=== PATIENT | female | born 1955 | race African-American/Black ===

== ENCOUNTER 2020-01-27 15:22 | Inpatient (IN) ==
[2020-01-27] MEDS ORDERED: ALBUTEROL NEB SOLN 5 MG/ML 20 ML/BOTTLE CONT NEB STA (15:36)
[2020-01-27] MEDS ORDERED: methylPREDNISolone SOD SUC 125 MG/2 ML VIAL IV STA (15:51)
[2020-01-27] MEDS ORDERED: LACTULOSE 20 GM/30 ML UDCUP PO PRN (16:02)
[2020-01-27] MEDS ORDERED: ONDANSETRON 4 MG/2 ML VIAL IV PRN (16:02)
[2020-01-27] MEDS ORDERED: CALCIUM CARBONATE CHEW 500 MG TABLET PO PRN (16:02)
[2020-01-27] MEDS ORDERED: BISACODYL 5 MG TABLET PO PRN (16:02)
[2020-01-27] MEDS ORDERED: SIMETHICONE CHEW 125 MG TABLET PO PRN (16:02)
[2020-01-27] MEDS ORDERED: guaiFENesin/DM ER 600-30 MG TABLET PO PRN (16:02)
[2020-01-27] MEDS ORDERED: ZALEPLON 5 MG CAPSULE PO PRN (16:02)
[2020-01-27] MEDS ORDERED: hydrALAZINE 20 MG/1 ML VIAL IV PRN (16:02)
[2020-01-27] MEDS ORDERED: diphenhydrAMINE CAP 25 MG CAPSULE PO PRN (16:02)
[2020-01-27] MEDS ORDERED: ACETAMINOPHEN 325 MG TABLET PO PRN (16:02)
[2020-01-27] MEDS ORDERED: DEXTROSE 50% 25 GM/50 ML VIAL IV PRN (16:02)
[2020-01-27] MEDS ORDERED: ALUMINUM/MAGNES/SIMETH MAX STR 30 ML UDCUP PO PRN (16:02)
[2020-01-27] MEDS ORDERED: DOCUSATE SODIUM 100 MG CAPSULE PO PRN (16:02)
[2020-01-27] MEDS ORDERED: GLUCAGON 1 MG VIAL IM PRN (16:02)
[2020-01-27 16:14] LABS: Basophils # 0.1 10*3/uL (0.0-0.2); Basophils % 0.4 % (0.0-0.8); Eosinophils # 0.1 10*3/uL (0.0-0.87); Eosinophils % 0.8 % (0.00-10.9); Hematocrit 38.5 VOL% (35.7-47.0); Hemoglobin 11.6 GM/DL (12.0-16.0); Immature Granulocytes % 0.8 %; Lymphocytes # 0.9 10*3/uL (1.4-4.0); Lymphocytes % 6.8 % (21.3-54.2); Mean Corpuscular HGB Conc 30.1 GM/DL (32-36); Mean Corpuscular Volume 88.7 FL (87-102); Mean Platelet Volume 11.5 FL (9.6-12.0); Monocytes % 5.9 % (1.7-12.7); Neutrophils % 85.3 % (38.7-73.9); Platelet Count 216 T/CUMM (130-400); Red Blood Count 4.34 MC/CUMM (3.8-5.5); White Blood Count 13.2 T/CUMM (4-12)
[2020-01-27] MEDS ORDERED: HYDROCORTISONE 2.5% RECTAL CREAM 30 GM TUBE TOP PRN (16:30)
[2020-01-27 16:48] LABS: Calcium 8.2 MG/DL (8.5-10.1); Osmolality,Calculated 275.8 MOS/KG (273-304)
[2020-01-27 18:18] LABS: ABG Base Excess -1.9 MMOL/L (-2.5-2.5); ABG HCO3 22.8 MMOL/L (20-26); ABG Oxygen Saturation 99.7 % (95-100); ABG PCO2 59.3 MM HG (35-48); ABG PH 7.257 (7.35-7.45); Allen Test Positive
[2020-01-27] MEDS: CALCIUM ACETATE 667 MG CAPSULE PO SCH (18:25)
[2020-01-27] MEDS: PIPERACILLIN/TAZOBACTAM 3,375 MG in SODIUM CHLORIDE 0.9% 100 ML IV SCH (18:32)
[2020-01-27] MEDS: ACETYLCYSTEINE 20% 800 MG/4 ML VIAL RESP TX SCH (19:30)
[2020-01-27] MEDS: ALBUTEROL/IPRATROPIUM 3 ML NEB RESP TX SCH (19:30)
[2020-01-27] MEDS ORDERED: BUDESONIDE/FORMOTEROL 160-4.5 INHALER 6 GM INH SCH (21:00)
[2020-01-27] MEDS: guaiFENesin/DM ER 600-30 MG TABLET PO SCH (21:00)
[2020-01-27] MEDS ORDERED: cefTRIAXone 1,000 MG in SODIUM CHLORIDE 0.9% 100 ML IV SCH (21:00)
[2020-01-27] MEDS ORDERED: VANCOMYCIN INJ 1,500 MG in SODIUM CHLORIDE 0.9% 500 ML IV ONE (21:00)
[2020-01-27] MEDS: AZITHROMYCIN 250 MG TABLET PO SCH (21:00)
[2020-01-27] MEDS: GLYCOPYRROLATE 1 MG TABLET PO SCH (21:01)
[2020-01-27] MEDS: ALBUTEROL/IPRATROPIUM 3 ML NEB RESP TX PRN (23:09)
[2020-01-28] MEDS: methylPREDNISolone SOD SUC 40 MG/1 ML VIAL IV SCH ×3 (01:09→16:14)
[2020-01-28] MEDS: ACETYLCYSTEINE 20% 800 MG/4 ML VIAL RESP TX SCH ×4 (01:32→19:24)
[2020-01-28] MEDS: ALBUTEROL/IPRATROPIUM 3 ML NEB RESP TX PRN ×2 (01:32→06:02)
[2020-01-28 04:04] LABS: Basophils % 0.1 % (0.0-0.8); Hematocrit 36.1 VOL% (35.7-47.0); Hemoglobin 10.9 GM/DL (12.0-16.0); Immature Granulocytes % 0.9 %; Immature Granulocytes Absolute 0.12 #; Lymphocytes # 0.3 10*3/uL (1.4-4.0); Lymphocytes % 2.4 % (21.3-54.2); Mean Corpuscular HGB Conc 30.2 GM/DL (32-36); Mean Corpuscular Volume 89.8 FL (87-102); Mean Platelet Volume 11.7 FL (9.6-12.0); Monocytes % 2.2 % (1.7-12.7); Neutrophils % 94.4 % (38.7-73.9); Platelet Count 179 T/CUMM (130-400); Red Blood Count 4.02 MC/CUMM (3.8-5.5)
[2020-01-28 04:28] LABS: Band Neutrophils 2 % (0-10); Hypochromasia 1+; Lymphocytes 5 % (20-55); Platelet Estimate Adequate; Segmented Neutrophils 91 % (50-85); Total Cells Counted 100
[2020-01-28 04:31] LABS: Albumin 2.5 G/DL (3.4-5.0); Bilirubin,Total 0.6 MG/DL (0.2-1.0); Calcium 7.9 MG/DL (8.5-10.1); Osmolality,Calculated 274.9 MOS/KG (273-304); Thyroid Stimulating Hormone 0.454 uIU/ml (0.358-3.74); Total Protein 7.6 G/DL (6.4-8.3)
[2020-01-28] MEDS: PIPERACILLIN/TAZOBACTAM 3,375 MG in SODIUM CHLORIDE 0.9% 100 ML IV SCH ×2 (05:16→18:24)
[2020-01-28] MEDS: ALBUTEROL/IPRATROPIUM 3 ML NEB RESP TX SCH ×3 (07:57→19:24)
[2020-01-28] MEDS ORDERED: SEVELAMER CARBONATE 800 MG TABLET PO SCH ×2 (08:00→12:00)
[2020-01-28] MEDS: NON-FORMULARY MEDICATION PO SCH ×3 (08:30→16:06)
[2020-01-28] MEDS: CALCIUM ACETATE 667 MG CAPSULE PO SCH ×2 (08:32→09:51)
[2020-01-28] MEDS: CINACALCET 30 MG TABLET PO SCH (08:32)
[2020-01-28] MEDS: GLYCOPYRROLATE 1 MG TABLET PO SCH ×2 (08:32→20:47)
[2020-01-28] MEDS: PANTOPRAZOLE 40 MG TABLET PO SCH (08:32)
[2020-01-28] MEDS: guaiFENesin/DM ER 600-30 MG TABLET PO SCH ×2 (08:32→20:47)
[2020-01-28] MEDS: MULTIVITAMIN (CENTRUM) TABLET PO SCH (08:32)
[2020-01-28] MEDS: ARFORMOTEROL 15 MCG/2 ML NEB RESP TX SCH ×2 (10:00→19:24)
[2020-01-28] MEDS: BUDESONIDE 0.5 MG/2 ML NEB RESP TX SCH ×2 (10:00→19:24)
[2020-01-28 11:25] LABS: Allen Test Positive; Pt O2 Delivery Device Ventilator
[2020-01-28 11:27] LABS: ABG Base Excess -5.6 MMOL/L (-2.5-2.5); ABG HCO3 19.8 MMOL/L (20-26); ABG Oxygen Saturation 99.8 % (95-100); ABG PCO2 42.9 MM HG (35-48); ABG PH 7.292 (7.35-7.45); ABG TCO2 18.9 MMOL/L (23-27)
[2020-01-28] MEDS ORDERED: VELPHORO PO SCH (12:00)
[2020-01-28] MEDS: SEVELAMER CARBONATE PO SCH ×2 (14:24→16:06)
[2020-01-28] MEDS: MIDAZOLAM 100 MG in SODIUM CHLORIDE 0.9% 80 ML IV PRN (14:50)
[2020-01-28] MEDS ORDERED: SODIUM CHLORIDE 0.9% 500 ML IV ONE (15:05)
[2020-01-28] MEDS: AZITHROMYCIN 250 MG TABLET PO SCH (20:47)
[2020-01-29] MEDS: methylPREDNISolone SOD SUC 40 MG/1 ML VIAL IV SCH ×3 (00:04→17:21)
[2020-01-29] MEDS: ACETYLCYSTEINE 20% 800 MG/4 ML VIAL RESP TX SCH ×4 (00:50→19:42)
[2020-01-29 04:20] LABS: Basophils % 0.1 % (0.0-0.8); Hematocrit 31.2 VOL% (35.7-47.0); Hemoglobin 9.7 GM/DL (12.0-16.0); Immature Granulocytes % 0.7 %; Immature Granulocytes Absolute 0.07 #; Lymphocytes # 0.5 10*3/uL (1.4-4.0); Lymphocytes % 4.4 % (21.3-54.2); Mean Corpuscular HGB Conc 31.1 GM/DL (32-36); Mean Corpuscular Volume 85.5 FL (87-102); Mean Platelet Volume 11.3 FL (9.6-12.0); Monocytes % 2.4 % (1.7-12.7); Neutrophils % 92.4 % (38.7-73.9); Platelet Count 180 T/CUMM (130-400); Red Blood Count 3.65 MC/CUMM (3.8-5.5); Red Cell Distribution Width 14.3 % (9.3-17.3); White Blood Count 10.6 T/CUMM (4-12)
[2020-01-29 04:51] LABS: Band Neutrophils 1 % (0-10); Hypochromasia 1+; Lymphocytes 3 % (20-55); Microcytosis Slight; Ovalocytes Slight; Platelet Estimate Adequate; Segmented Neutrophils 94 % (50-85); Total Cells Counted 100
[2020-01-29 05:39] LABS: Albumin 2.2 G/DL (3.4-5.0); Bilirubin,Total 0.9 MG/DL (0.2-1.0); Calcium 7.5 MG/DL (8.5-10.1); Osmolality,Calculated 278.9 MOS/KG (273-304); Thyroid Stimulating Hormone 0.166 uIU/ml (0.358-3.74); Total Protein 6.6 G/DL (6.4-8.3)
[2020-01-29] MEDS: PIPERACILLIN/TAZOBACTAM 3,375 MG in SODIUM CHLORIDE 0.9% 100 ML IV SCH ×2 (05:42→17:22)
[2020-01-29] MEDS: MIDAZOLAM 100 MG in SODIUM CHLORIDE 0.9% 80 ML IV PRN ×2 (06:11→20:01)
[2020-01-29] MEDS: ALBUTEROL/IPRATROPIUM 3 ML NEB RESP TX SCH ×3 (07:02→19:42)
[2020-01-29] MEDS: ARFORMOTEROL 15 MCG/2 ML NEB RESP TX SCH ×2 (07:02→19:42)
[2020-01-29] MEDS: BUDESONIDE 0.5 MG/2 ML NEB RESP TX SCH ×2 (07:02→19:42)
[2020-01-29] MEDS: NON-FORMULARY MEDICATION PO SCH ×3 (10:34→17:22)
[2020-01-29] MEDS: SEVELAMER CARBONATE PO SCH ×3 (10:35→17:22)
[2020-01-29] MEDS: PANTOPRAZOLE 40 MG TABLET PO SCH (14:09)
[2020-01-29] MEDS: MULTIVITAMIN (CENTRUM) TABLET PO SCH (14:30)
[2020-01-29] MEDS: guaiFENesin/DM ER 600-30 MG TABLET PO SCH ×2 (14:30→22:30)
[2020-01-29] MEDS: CINACALCET 30 MG TABLET PO SCH (14:30)
[2020-01-29] MEDS: GLYCOPYRROLATE 1 MG TABLET PO SCH ×2 (14:30→22:30)
[2020-01-29] MEDS: PANTOPRAZOLE 40 MG VIAL IV SCH (14:31)
[2020-01-29] MEDS ORDERED: SODIUM CHLORIDE 0.9% 500 ML IV ONE (17:07)
[2020-01-29] MEDS: INSULIN REGULAR 100 UNIT/ML SUBCUT SCH (18:54)
[2020-01-29] MEDS: AZITHROMYCIN 250 MG TABLET PO SCH (22:30)
[2020-01-30] MEDS: ACETYLCYSTEINE 20% 800 MG/4 ML VIAL RESP TX SCH ×4 (01:06→21:18)
[2020-01-30] MEDS: INSULIN REGULAR 100 UNIT/ML SUBCUT SCH ×3 (01:16→14:36)
[2020-01-30] MEDS: methylPREDNISolone SOD SUC 40 MG/1 ML VIAL IV SCH ×3 (01:26→17:12)
[2020-01-30 04:35] LABS: Hematocrit 25.9 VOL% (35.7-47.0); Hemoglobin 8.6 GM/DL (12.0-16.0); Immature Granulocytes % 0.8 %; Immature Granulocytes Absolute 0.08 #; Lymphocytes # 0.4 10*3/uL (1.4-4.0); Mean Corpuscular HGB Conc 33.2 GM/DL (32-36); Mean Platelet Volume 11.9 FL (9.6-12.0); Monocytes % 3.5 % (1.7-12.7); Neutrophils % 91.7 % (38.7-73.9); Platelet Count 179 T/CUMM (130-400); Red Blood Count 3.12 MC/CUMM (3.8-5.5); Red Cell Distribution Width 14.5 % (9.3-17.3); White Blood Count 9.4 T/CUMM (4-12)
[2020-01-30 04:57] LABS: Band Neutrophils 1 % (0-10); Hypochromasia 1+; Lymphocytes 2 % (20-55); Microcytosis Slight; Ovalocytes Slight; Platelet Estimate Adequate; Segmented Neutrophils 95 % (50-85); Total Cells Counted 100
[2020-01-30 05:05] LABS: Calcium 6.8 MG/DL (8.5-10.1); Osmolality,Calculated 280.4 MOS/KG (273-304)
[2020-01-30 05:08] LABS: ABG Base Excess 1.6 MMOL/L (-2.5-2.5); ABG HCO3 24.6 MMOL/L (20-26); ABG Oxygen Saturation 98.8 % (95-100); ABG PCO2 32.7 MM HG (35-48); ABG PH 7.494 (7.35-7.45); ABG PO2 149.2 MM HG (80-95); ABG TCO2 25.6 MMOL/L (23-27); Allen Test Positive; Pt O2 Delivery Device Ventilator
[2020-01-30] MEDS: PIPERACILLIN/TAZOBACTAM 3,375 MG in SODIUM CHLORIDE 0.9% 100 ML IV SCH ×2 (06:18→17:14)
[2020-01-30] MEDS: ARFORMOTEROL 15 MCG/2 ML NEB RESP TX SCH ×2 (06:51→20:12)
[2020-01-30] MEDS: BUDESONIDE 0.5 MG/2 ML NEB RESP TX SCH ×2 (06:51→20:12)
[2020-01-30] MEDS: ALBUTEROL/IPRATROPIUM 3 ML NEB RESP TX SCH ×3 (06:51→20:12)
[2020-01-30] MEDS ORDERED: EPOETIN ALFA-EPBX 2,000 UNIT/ML VIAL IV PRN (08:20)
[2020-01-30] MEDS: GLYCOPYRROLATE 1 MG TABLET PO SCH ×2 (09:14→21:18)
[2020-01-30] MEDS: CINACALCET 30 MG TABLET PO SCH (09:14)
[2020-01-30] MEDS: guaiFENesin/DM ER 600-30 MG TABLET PO SCH ×2 (09:15→21:18)
[2020-01-30] MEDS: MULTIVITAMIN (CENTRUM) TABLET PO SCH (09:15)
[2020-01-30] MEDS: PANTOPRAZOLE 40 MG VIAL IV SCH (09:17)
[2020-01-30] MEDS: SEVELAMER CARBONATE PO SCH ×3 (09:21→17:14)
[2020-01-30] MEDS: NON-FORMULARY MEDICATION PO SCH ×3 (09:21→17:13)
[2020-01-30] MEDS ORDERED: SEVELAMER CARBONATE 800 MG TABLET PO SCH (18:22)
[2020-01-30] MEDS: AZITHROMYCIN 250 MG TABLET PO SCH (21:18)
[2020-01-31] MEDS: methylPREDNISolone SOD SUC 40 MG/1 ML VIAL IV SCH ×3 (00:10→17:33)
[2020-01-31] MEDS: ACETYLCYSTEINE 20% 800 MG/4 ML VIAL RESP TX SCH ×4 (01:03→18:50)
[2020-01-31] MEDS: ALBUTEROL/IPRATROPIUM 3 ML NEB RESP TX PRN (01:03)
[2020-01-31] MEDS: PIPERACILLIN/TAZOBACTAM 3,375 MG in SODIUM CHLORIDE 0.9% 100 ML IV SCH ×2 (06:00→17:34)
[2020-01-31 06:01] LABS: Basophils % 0.1 % (0.0-0.8); Hematocrit 34.4 VOL% (35.7-47.0); Hemoglobin 10.8 GM/DL (12.0-16.0); Immature Granulocytes % 2.2 %; Immature Granulocytes Absolute 0.22 #; Lymphocytes # 0.4 10*3/uL (1.4-4.0); Lymphocytes % 4.4 % (21.3-54.2); Mean Corpuscular HGB Conc 31.4 GM/DL (32-36); Mean Corpuscular Volume 85.8 FL (87-102); Mean Platelet Volume 11.1 FL (9.6-12.0); Monocytes % 3.8 % (1.7-12.7); Neutrophils % 89.5 % (38.7-73.9); Platelet Count 165 T/CUMM (130-400); Red Blood Count 4.01 MC/CUMM (3.8-5.5); Red Cell Distribution Width 14.7 % (9.3-17.3)
[2020-01-31 06:21] LABS: Calcium 7.5 MG/DL (8.5-10.1); Osmolality,Calculated 289.2 MOS/KG (273-304)
[2020-01-31 06:46] LABS: Hypochromasia 1+; Lymphocytes 4 % (20-55); Segmented Neutrophils 94 % (50-85); Total Cells Counted 100
[2020-01-31 06:47] LABS: Microcytosis Slight; Tear Drop Cells Slight
[2020-01-31 06:48] LABS: Platelet Estimate Adequate
[2020-01-31] MEDS: ALBUTEROL/IPRATROPIUM 3 ML NEB RESP TX SCH ×3 (07:20→18:50)
[2020-01-31] MEDS: ARFORMOTEROL 15 MCG/2 ML NEB RESP TX SCH ×2 (07:20→18:50)
[2020-01-31] MEDS: BUDESONIDE 0.5 MG/2 ML NEB RESP TX SCH ×2 (07:36→18:50)
[2020-01-31] MEDS ORDERED: SEVELAMER CARBONATE 800 MG TABLET PO SCH (08:00)
[2020-01-31] MEDS: NON-FORMULARY MEDICATION PO SCH ×3 (14:24→17:40)
[2020-01-31] MEDS: SEVELAMER CARBONATE PO SCH ×3 (14:25→17:40)
[2020-01-31] MEDS: PANTOPRAZOLE 40 MG VIAL IV SCH (14:26)
[2020-01-31] MEDS: guaiFENesin/DM ER 600-30 MG TABLET PO SCH ×2 (14:27→21:19)
[2020-01-31] MEDS: GLYCOPYRROLATE 1 MG TABLET PO SCH ×2 (14:27→21:19)
[2020-01-31] MEDS: MULTIVITAMIN (CENTRUM) TABLET PO SCH (14:27)
[2020-01-31] MEDS: CINACALCET 30 MG TABLET PO SCH (14:27)
[2020-01-31] MEDS: AZITHROMYCIN 250 MG TABLET PO SCH (21:19)
[2020-02-01] MEDS: ACETYLCYSTEINE 20% 800 MG/4 ML VIAL RESP TX SCH ×4 (00:10→19:28)
[2020-02-01] MEDS: methylPREDNISolone SOD SUC 40 MG/1 ML VIAL IV SCH ×3 (00:44→17:13)
[2020-02-01] MEDS: BUDESONIDE 0.5 MG/2 ML NEB RESP TX SCH ×2 (01:08→07:35)
[2020-02-01 05:38] LABS: Basophils % 0.1 % (0.0-0.8); Hematocrit 35.3 VOL% (35.7-47.0); Immature Granulocytes % 1.8 %; Immature Granulocytes Absolute 0.16 #; Lymphocytes # 0.5 10*3/uL (1.4-4.0); Lymphocytes % 5.6 % (21.3-54.2); Mean Corpuscular HGB Conc 31.2 GM/DL (32-36); Mean Corpuscular Volume 87.2 FL (87-102); Mean Platelet Volume 11.4 FL (9.6-12.0); Monocytes % 4.3 % (1.7-12.7); Neutrophils % 88.2 % (38.7-73.9); Platelet Count 167 T/CUMM (130-400); Red Blood Count 4.05 MC/CUMM (3.8-5.5); Red Cell Distribution Width 14.6 % (9.3-17.3)
[2020-02-01] MEDS: PIPERACILLIN/TAZOBACTAM 3,375 MG in SODIUM CHLORIDE 0.9% 100 ML IV SCH ×2 (06:13→18:14)
[2020-02-01 06:31] LABS: Calcium 7.4 MG/DL (8.5-10.1); Osmolality,Calculated 282.2 MOS/KG (273-304)
[2020-02-01] MEDS: ALBUTEROL/IPRATROPIUM 3 ML NEB RESP TX SCH ×3 (07:20→19:28)
[2020-02-01] MEDS: ARFORMOTEROL 15 MCG/2 ML NEB RESP TX SCH ×2 (07:20→19:28)
[2020-02-01] MEDS: NON-FORMULARY MEDICATION PO SCH ×3 (09:49→17:13)
[2020-02-01] MEDS: MULTIVITAMIN (CENTRUM) TABLET PO SCH (09:50)
[2020-02-01] MEDS: GLYCOPYRROLATE 1 MG TABLET PO SCH ×2 (09:50→21:07)
[2020-02-01] MEDS: guaiFENesin/DM ER 600-30 MG TABLET PO SCH ×2 (09:50→21:07)
[2020-02-01] MEDS: PANTOPRAZOLE 40 MG VIAL IV SCH (09:50)
[2020-02-01] MEDS: SEVELAMER CARBONATE PO SCH ×3 (09:50→17:13)
[2020-02-01] MEDS: CINACALCET 30 MG TABLET PO SCH (09:50)
[2020-02-01] MEDS: DORNASE ALFA 2.5 MG/2.5 ML VIAL RESP TX SCH (19:44)
[2020-02-02] MEDS: methylPREDNISolone SOD SUC 40 MG/1 ML VIAL IV SCH ×2 (00:21→08:32)
[2020-02-02] MEDS: ALBUTEROL/IPRATROPIUM 3 ML NEB RESP TX PRN (01:08)
[2020-02-02] MEDS: ACETYLCYSTEINE 20% 800 MG/4 ML VIAL RESP TX SCH ×3 (01:22→13:59)
[2020-02-02] MEDS: PIPERACILLIN/TAZOBACTAM 3,375 MG in SODIUM CHLORIDE 0.9% 100 ML IV SCH (05:45)
[2020-02-02 05:58] LABS: Basophils % 0.2 % (0.0-0.8); Hematocrit 36.7 VOL% (35.7-47.0); Hemoglobin 11.2 GM/DL (12.0-16.0); Immature Granulocytes % 2.6 %; Immature Granulocytes Absolute 0.25 #; Lymphocytes # 0.5 10*3/uL (1.4-4.0); Lymphocytes % 4.7 % (21.3-54.2); Mean Corpuscular HGB Conc 30.5 GM/DL (32-36); Mean Corpuscular Volume 88.2 FL (87-102); Mean Platelet Volume 11.8 FL (9.6-12.0); Monocytes % 5.3 % (1.7-12.7); Neutrophils % 87.2 % (38.7-73.9); Platelet Count 164 T/CUMM (130-400); Red Blood Count 4.16 MC/CUMM (3.8-5.5); Red Cell Distribution Width 14.7 % (9.3-17.3); White Blood Count 9.7 T/CUMM (4-12)
[2020-02-02 06:06] LABS: Calcium 7.6 MG/DL (8.5-10.1); Osmolality,Calculated 288.2 MOS/KG (273-304)
[2020-02-02 06:30] LABS: Band Neutrophils 2 % (0-10); Lymphocytes 5 % (20-55); Platelet Estimate Normal; Segmented Neutrophils 88 % (50-85); Total Cells Counted 100
[2020-02-02 06:31] LABS: Anisocytosis 2+
[2020-02-02] MEDS: BUDESONIDE 0.5 MG/2 ML NEB RESP TX SCH (08:20)
[2020-02-02] MEDS: ALBUTEROL/IPRATROPIUM 3 ML NEB RESP TX SCH ×2 (08:20→13:58)
[2020-02-02] MEDS: MULTIVITAMIN (CENTRUM) TABLET PO SCH (08:32)
[2020-02-02] MEDS: guaiFENesin/DM ER 600-30 MG TABLET PO SCH (08:32)
[2020-02-02] MEDS: GLYCOPYRROLATE 1 MG TABLET PO SCH (08:32)
[2020-02-02] MEDS: CINACALCET 30 MG TABLET PO SCH ×2 (08:32→08:34)
[2020-02-02] MEDS: NON-FORMULARY MEDICATION PO SCH ×2 (08:33→12:15)
[2020-02-02] MEDS: SEVELAMER CARBONATE PO SCH ×2 (08:33→12:15)
[2020-02-02] MEDS: PANTOPRAZOLE 40 MG VIAL IV SCH (08:36)
[2020-02-02] MEDS: ARFORMOTEROL 15 MCG/2 ML NEB RESP TX SCH (10:37)
[2020-02-02] MEDS: DORNASE ALFA 2.5 MG/2.5 ML VIAL RESP TX SCH (10:37)
[2020-02-02 12:20] VITALS: BP 112/59
== END 2020-02-02 15:13 | disposition home health service (06) | DRG 208 ==
LOC: EDBD → EDUNIT# → N.ED 15:22 → N.EDINP 15:22 → SUATTDRO 15:53 → N.EDINP 16:28 → N.ICU 18:10 → SUATTDRO 01-28 14:37 → N.TELES 01-30 19:16
PROVIDERS: ADMIT Hospitalist; ATTEND Internal Medicine

== ENCOUNTER 2020-02-04 19:07 | Inpatient (IN) ==
[2020-02-04 19:43] LABS: Basophils % 0.2 % (0.0-0.8); Eosinophils # 0.2 10*3/uL (0.0-0.87); Eosinophils % 1.8 % (0.00-10.9); Hematocrit 38.9 VOL% (35.7-47.0); Hemoglobin 12.4 GM/DL (12.0-16.0); Immature Granulocytes % 2.6 %; Immature Granulocytes Absolute 0.34 #; Lymphocytes # 0.9 10*3/uL (1.4-4.0); Lymphocytes % 6.9 % (21.3-54.2); Mean Corpuscular HGB Conc 31.9 GM/DL (32-36); Mean Corpuscular Volume 86.3 FL (87-102); Monocytes % 5.9 % (1.7-12.7); Neutrophils % 82.6 % (38.7-73.9); Platelet Count 158 T/CUMM (130-400); Red Blood Count 4.51 MC/CUMM (3.8-5.5); Red Cell Distribution Width 14.6 % (9.3-17.3); White Blood Count 13.1 T/CUMM (4-12)
[2020-02-04] MEDS ORDERED: CEFEPIME 2,000 MG in SODIUM CHLORIDE 0.9% 100 ML IV STA (20:14)
[2020-02-04 20:26] LABS: INR 1.1; PT Patient Result 11.6 SECS (9.8-11.9); Partial Thromboplastin Time 32.2 SECS (23.9-33.8)
[2020-02-04 20:43] LABS: Albumin 2.8 G/DL (3.4-5.0); Bilirubin,Total 1.1 MG/DL (0.2-1.0); Calcium 7.9 MG/DL (8.5-10.1); Osmolality,Calculated 296.5 MOS/KG (273-304); Total Protein 7.3 G/DL (6.4-8.3)
[2020-02-04] MEDS ORDERED: guaiFENesin/DM ER 600-30 MG TABLET PO PRN (22:19)
[2020-02-04] MEDS ORDERED: ONDANSETRON 4 MG/2 ML VIAL IV PRN (22:19)
[2020-02-04] MEDS ORDERED: GLUCAGON 1 MG VIAL IM PRN (22:19)
[2020-02-04] MEDS ORDERED: DEXTROSE 50% 25 GM/50 ML VIAL IV PRN (22:19)
[2020-02-05] MEDS: HYDROCORTISONE 2.5% RECTAL CREAM 30 GM TUBE TOP SCH ×2 (04:11→23:19)
[2020-02-05] MEDS: ALBUTEROL/IPRATROPIUM 3 ML NEB RESP TX SCH (06:50)
[2020-02-05 06:52] LABS: Basophils % 0.2 % (0.0-0.8); Eosinophils # 0.4 10*3/uL (0.0-0.87); Eosinophils % 2.5 % (0.00-10.9); Hematocrit 37.2 VOL% (35.7-47.0); Hemoglobin 11.5 GM/DL (12.0-16.0); Immature Granulocytes Absolute 0.42 #; Lymphocytes # 1.1 10*3/uL (1.4-4.0); Lymphocytes % 7.5 % (21.3-54.2); Mean Corpuscular HGB Conc 30.9 GM/DL (32-36); Mean Corpuscular Volume 86.3 FL (87-102); Mean Platelet Volume 12.5 FL (9.6-12.0); Monocytes % 5.5 % (1.7-12.7); Neutrophils % 81.3 % (38.7-73.9); Platelet Count 171 T/CUMM (130-400); Red Blood Count 4.31 MC/CUMM (3.8-5.5); Red Cell Distribution Width 14.6 % (9.3-17.3); White Blood Count 13.9 T/CUMM (4-12)
[2020-02-05 07:14] LABS: Albumin 2.9 G/DL (3.4-5.0); Bilirubin,Total 1.6 MG/DL (0.2-1.0); Calcium 8.3 MG/DL (8.5-10.1); Osmolality,Calculated 295.7 MOS/KG (273-304); Total Protein 7.2 G/DL (6.4-8.3)
[2020-02-05] MEDS ORDERED: Sucroferric Oxyhydroxide [Velphoro] 500 MG PO SCH (08:00)
[2020-02-05] MEDS ORDERED: predniSONE 20 MG TABLET PO SCH ×2 (08:00→09:00)
[2020-02-05] MEDS: ZINC GLUCONATE 50 MG TABLET PO SCH (08:06)
[2020-02-05] MEDS: guaiFENesin/DM ER 600-30 MG TABLET PO SCH (08:06)
[2020-02-05] MEDS: CINACALCET 30 MG TABLET PO SCH (08:06)
[2020-02-05] MEDS: SEVELAMER CARBONATE 800 MG TABLET PO SCH ×3 (08:07→16:38)
[2020-02-05] MEDS: MULTIVITAMIN (CENTRUM) TABLET PO SCH (08:07)
[2020-02-05] MEDS: ASCORBIC ACID 500 MG TABLET PO SCH (08:07)
[2020-02-05] MEDS ORDERED: PANTOPRAZOLE 40 MG TABLET PO SCH (09:00)
[2020-02-05] MEDS ORDERED: EPINEPHrine 1 MG/ML VIAL ONE (14:29)
[2020-02-05] MEDS ORDERED: SODIUM BICARBONATE 50 MEQ/50 ML VIAL IV ONE (14:29)
[2020-02-05] MEDS ORDERED: DOPamine 800 MG/250 ML PREMIX IV PRN (14:30)
[2020-02-05] MEDS ORDERED: VANCOMYCIN INJ 750 MG in SODIUM CHLORIDE 0.9% 250 ML IV PRN (14:58)
[2020-02-05] MEDS: HEPARIN 5,000 UNIT/1 ML VIAL SUBCUT SCH (15:30)
[2020-02-05] MEDS: methylPREDNISolone SOD SUC 40 MG/1 ML VIAL IV SCH ×2 (15:30→23:20)
[2020-02-05] MEDS: PIPERACILLIN/TAZOBACTAM 3,375 MG in SODIUM CHLORIDE 0.9% 100 ML IV SCH (15:30)
[2020-02-05] MEDS ORDERED: VANCOMYCIN INJ 1,500 MG in SODIUM CHLORIDE 0.9% 500 ML IV ONE (16:00)
[2020-02-05 17:02] LABS: Basophils % 0.2 % (0.0-0.8); Eosinophils % 0.1 % (0.00-10.9); Hematocrit 35.4 VOL% (35.7-47.0); Hemoglobin 11.1 GM/DL (12.0-16.0); Immature Granulocytes % 5.1 %; Immature Granulocytes Absolute 0.69 #; Lymphocytes # 0.5 10*3/uL (1.4-4.0); Lymphocytes % 3.6 % (21.3-54.2); Mean Corpuscular HGB Conc 31.4 GM/DL (32-36); Mean Corpuscular Volume 85.9 FL (87-102); Mean Platelet Volume 12.6 FL (9.6-12.0); Monocytes % 2.3 % (1.7-12.7); Neutrophils % 88.7 % (38.7-73.9); Platelet Count 149 T/CUMM (130-400); Red Blood Count 4.12 MC/CUMM (3.8-5.5); Red Cell Distribution Width 14.3 % (9.3-17.3); White Blood Count 13.6 T/CUMM (4-12)
[2020-02-05 17:05] LABS: ABG Base Excess 3.5 MMOL/L (-2.5-2.5); ABG HCO3 27.6 MMOL/L (20-26); ABG Oxygen Saturation 99.6 % (95-100); ABG PCO2 37.9 MM HG (35-48); ABG PH 7.466 (7.35-7.45); ABG TCO2 24.6 MMOL/L (23-27)
[2020-02-05 17:39] LABS: Alanine Aminotransferase 114 U/L (13-56); Albumin 2.7 G/DL (3.4-5.0); Alkaline Phosphatase 148 U/L (45-117); Aspartate Amino Transferase 76 U/L (0-37); Blood Urea Nitrogen 77 MG/DL (7-18); Calcium 7.8 MG/DL (8.5-10.1); Estimated Glom Filtration Rate 5 ML/MIN; Glucose 111 MG/DL (74-106); Osmolality,Calculated 296.8 MOS/KG (273-304); Total Protein 6.6 G/DL (6.4-8.3); Troponin I < 0.015 NG/ML (0.00-0.045)
[2020-02-05 17:45] LABS: Free T4 (Free Thyroxine) 0.9 NG/DL (0.76-1.46); Thyroid Stimulating Hormone 1.11 uIU/ml (0.358-3.74)
[2020-02-05 17:51] LABS: Lymphocytes 3 % (20-55); Platelet Estimate Adequate; Segmented Neutrophils 97 % (50-85); Total Cells Counted 100
[2020-02-05] MEDS ORDERED: AMOXICILLIN/CLAV 500 MG TABLET PO SCH (21:00)
[2020-02-06] MEDS: HEPARIN 5,000 UNIT/1 ML VIAL SUBCUT SCH ×2 (02:44→16:55)
[2020-02-06] MEDS: PIPERACILLIN/TAZOBACTAM 3,375 MG in SODIUM CHLORIDE 0.9% 100 ML IV SCH ×2 (02:44→16:54)
[2020-02-06 04:06] LABS: ABG Base Excess 0.3 MMOL/L (-2.5-2.5); ABG HCO3 24.7 MMOL/L (20-26); ABG Oxygen Saturation 99.5 % (95-100); ABG PCO2 37.6 MM HG (35-48); ABG PH 7.422 (7.35-7.45)
[2020-02-06 04:35] LABS: Basophils % 0.2 % (0.0-0.8); Hematocrit 32.7 VOL% (35.7-47.0); Hemoglobin 10.6 GM/DL (12.0-16.0); Immature Granulocytes Absolute 0.38 #; Lymphocytes # 0.6 10*3/uL (1.4-4.0); Lymphocytes % 6.7 % (21.3-54.2); Mean Corpuscular HGB Conc 32.4 GM/DL (32-36); Mean Corpuscular Volume 83.6 FL (87-102); Mean Platelet Volume 12.4 FL (9.6-12.0); Monocytes % 1.8 % (1.7-12.7); Neutrophils % 87.3 % (38.7-73.9); Platelet Count 157 T/CUMM (130-400); Red Blood Count 3.91 MC/CUMM (3.8-5.5); White Blood Count 9.5 T/CUMM (4-12)
[2020-02-06 05:00] LABS: Risk Ratio 2.35; VLDL CHOLESTEROL 18.2 MG/DL
[2020-02-06 05:04] LABS: Alanine Aminotransferase 91 U/L (13-56); Albumin 2.5 G/DL (3.4-5.0); Alkaline Phosphatase 128 U/L (45-117); Aspartate Amino Transferase 46 U/L (0-37); Blood Urea Nitrogen 82 MG/DL (7-18); Calcium 7.5 MG/DL (8.5-10.1); Estimated Glom Filtration Rate 4 ML/MIN; Glucose 102 MG/DL (74-106); Osmolality,Calculated 301.5 MOS/KG (273-304); Total Protein 6.5 G/DL (6.4-8.3); Troponin I 0.029 NG/ML (0.00-0.045)
[2020-02-06] MEDS: methylPREDNISolone SOD SUC 40 MG/1 ML VIAL IV SCH ×3 (06:36→22:28)
[2020-02-06] MEDS: PANTOPRAZOLE 40 MG VIAL IV SCH (09:25)
[2020-02-06] MEDS: ASCORBIC ACID 500 MG TABLET PO SCH ×2 (10:26→20:20)
[2020-02-06] MEDS: CINACALCET 30 MG TABLET PO SCH (10:27)
[2020-02-06] MEDS: guaiFENesin/DM ER 600-30 MG TABLET PO SCH ×3 (10:27→20:20)
[2020-02-06] MEDS: SEVELAMER CARBONATE 800 MG TABLET PO SCH ×3 (10:28→18:03)
[2020-02-06] MEDS: MULTIVITAMIN (CENTRUM) TABLET PO SCH ×2 (10:28→12:36)
[2020-02-06] MEDS: ZINC GLUCONATE 50 MG TABLET PO SCH (16:54)
[2020-02-06] MEDS ORDERED: VANCOMYCIN INJ 750 MG in SODIUM CHLORIDE 0.9% 250 ML IV ONE (17:00)
[2020-02-06] MEDS: HYDROCORTISONE 2.5% RECTAL CREAM 30 GM TUBE TOP SCH (22:12)
[2020-02-07] MEDS: PIPERACILLIN/TAZOBACTAM 3,375 MG in SODIUM CHLORIDE 0.9% 100 ML IV SCH ×2 (02:12→13:23)
[2020-02-07] MEDS: HEPARIN 5,000 UNIT/1 ML VIAL SUBCUT SCH ×2 (02:12→14:55)
[2020-02-07] MEDS: methylPREDNISolone SOD SUC 40 MG/1 ML VIAL IV SCH ×2 (06:19→14:56)
[2020-02-07 06:54] LABS: Basophils % 0.1 % (0.0-0.8); Hematocrit 32.2 VOL% (35.7-47.0); Immature Granulocytes % 2.4 %; Immature Granulocytes Absolute 0.18 #; Lymphocytes # 0.6 10*3/uL (1.4-4.0); Lymphocytes % 8.1 % (21.3-54.2); Mean Corpuscular HGB Conc 31.1 GM/DL (32-36); Mean Corpuscular Volume 85.6 FL (87-102); Mean Platelet Volume 12.4 FL (9.6-12.0); Monocytes % 3.3 % (1.7-12.7); Neutrophils % 86.1 % (38.7-73.9); Platelet Count 133 T/CUMM (130-400); Red Blood Count 3.76 MC/CUMM (3.8-5.5); Red Cell Distribution Width 14.3 % (9.3-17.3); White Blood Count 7.6 T/CUMM (4-12)
[2020-02-07 07:21] LABS: Calcium 7.7 MG/DL (8.5-10.1)
[2020-02-07] MEDS: CINACALCET 30 MG TABLET PO SCH (09:20)
[2020-02-07] MEDS: ZINC GLUCONATE 50 MG TABLET PO SCH (09:20)
[2020-02-07] MEDS: MULTIVITAMIN (CENTRUM) TABLET PO SCH (09:20)
[2020-02-07] MEDS: guaiFENesin/DM ER 600-30 MG TABLET PO SCH ×2 (09:21→21:39)
[2020-02-07] MEDS: PANTOPRAZOLE 40 MG VIAL IV SCH (09:21)
[2020-02-07] MEDS: SEVELAMER CARBONATE 800 MG TABLET PO SCH ×3 (09:21→16:43)
[2020-02-07] MEDS: ASCORBIC ACID 500 MG TABLET PO SCH ×2 (10:46→21:39)
[2020-02-07] MEDS: ALBUTEROL/IPRATROPIUM 3 ML NEB RESP TX SCH ×2 (12:10→19:04)
[2020-02-07] MEDS: ARFORMOTEROL 15 MCG/2 ML NEB RESP TX SCH (19:04)
[2020-02-07] MEDS: BUDESONIDE 0.5 MG/2 ML NEB RESP TX SCH (19:04)
[2020-02-08] MEDS: methylPREDNISolone SOD SUC 40 MG/1 ML VIAL IV SCH ×3 (00:41→14:19)
[2020-02-08] MEDS: ALBUTEROL/IPRATROPIUM 3 ML NEB RESP TX SCH ×4 (01:03→19:02)
[2020-02-08] MEDS: HYDROCORTISONE 2.5% RECTAL CREAM 30 GM TUBE TOP SCH (01:19)
[2020-02-08] MEDS: PIPERACILLIN/TAZOBACTAM 3,375 MG in SODIUM CHLORIDE 0.9% 100 ML IV SCH ×2 (02:38→14:27)
[2020-02-08] MEDS: HEPARIN 5,000 UNIT/1 ML VIAL SUBCUT SCH ×2 (02:38→14:20)
[2020-02-08] MEDS: BUDESONIDE 0.5 MG/2 ML NEB RESP TX SCH ×2 (07:06→19:02)
[2020-02-08] MEDS: ARFORMOTEROL 15 MCG/2 ML NEB RESP TX SCH ×2 (07:06→19:02)
[2020-02-08] MEDS: SEVELAMER CARBONATE 800 MG TABLET PO SCH ×3 (08:39→16:45)
[2020-02-08] MEDS: PANTOPRAZOLE 40 MG VIAL IV SCH (08:39)
[2020-02-08] MEDS: CINACALCET 30 MG TABLET PO SCH (08:40)
[2020-02-08] MEDS: guaiFENesin/DM ER 600-30 MG TABLET PO SCH ×2 (08:40→21:11)
[2020-02-08] MEDS: ASCORBIC ACID 500 MG TABLET PO SCH ×2 (08:40→21:11)
[2020-02-08] MEDS: MULTIVITAMIN (CENTRUM) TABLET PO SCH (08:40)
[2020-02-09] MEDS: methylPREDNISolone SOD SUC 40 MG/1 ML VIAL IV SCH ×4 (00:11→18:06)
[2020-02-09] MEDS: HYDROCORTISONE 2.5% RECTAL CREAM 30 GM TUBE TOP SCH (00:15)
[2020-02-09] MEDS: ALBUTEROL/IPRATROPIUM 3 ML NEB RESP TX SCH ×4 (00:38→19:35)
[2020-02-09] MEDS: PIPERACILLIN/TAZOBACTAM 3,375 MG in SODIUM CHLORIDE 0.9% 100 ML IV SCH ×2 (02:32→16:59)
[2020-02-09] MEDS: HEPARIN 5,000 UNIT/1 ML VIAL SUBCUT SCH ×2 (02:33→17:00)
[2020-02-09 03:56] LABS: Osmolality,Calculated 292.8 MOS/KG (273-304)
[2020-02-09] MEDS: BUDESONIDE 0.5 MG/2 ML NEB RESP TX SCH ×2 (07:19→19:35)
[2020-02-09] MEDS: ARFORMOTEROL 15 MCG/2 ML NEB RESP TX SCH ×2 (07:19→19:35)
[2020-02-09 07:27] LABS: Basophils % 0.1 % (0.0-0.8); Hematocrit 31.1 VOL% (35.7-47.0); Hemoglobin 9.8 GM/DL (12.0-16.0); Immature Granulocytes % 3.7 %; Immature Granulocytes Absolute 0.44 #; Lymphocytes # 0.6 10*3/uL (1.4-4.0); Lymphocytes % 4.7 % (21.3-54.2); Mean Corpuscular HGB Conc 31.5 GM/DL (32-36); Mean Corpuscular Volume 85.9 FL (87-102); Mean Platelet Volume 12.9 FL (9.6-12.0); Monocytes % 3.7 % (1.7-12.7); Neutrophils % 87.8 % (38.7-73.9); Platelet Count 117 T/CUMM (130-400); Red Blood Count 3.62 MC/CUMM (3.8-5.5); Red Cell Distribution Width 14.3 % (9.3-17.3); White Blood Count 11.8 T/CUMM (4-12)
[2020-02-09 07:48] LABS: Band Neutrophils 1 % (0-10); Hypochromasia 1+; Lymphocytes 4 % (20-55); Ovalocytes Slight; Platelet Estimate Decreased; Segmented Neutrophils 90 % (50-85); Total Cells Counted 100
[2020-02-09] MEDS: SEVELAMER CARBONATE 800 MG TABLET PO SCH ×3 (12:02→17:01)
[2020-02-09] MEDS: guaiFENesin/DM ER 600-30 MG TABLET PO SCH ×2 (12:02→20:46)
[2020-02-09] MEDS: ASCORBIC ACID 500 MG TABLET PO SCH ×2 (12:02→20:47)
[2020-02-09] MEDS: CINACALCET 30 MG TABLET PO SCH (12:02)
[2020-02-09] MEDS: MULTIVITAMIN (CENTRUM) TABLET PO SCH (12:03)
[2020-02-09] MEDS: PANTOPRAZOLE 40 MG VIAL IV SCH (12:03)
[2020-02-10] MEDS: HYDROCORTISONE 2.5% RECTAL CREAM 30 GM TUBE TOP SCH ×2 (00:17→22:34)
[2020-02-10] MEDS: methylPREDNISolone SOD SUC 40 MG/1 ML VIAL IV SCH ×3 (01:04→17:47)
[2020-02-10] MEDS: ALBUTEROL/IPRATROPIUM 3 ML NEB RESP TX SCH ×4 (01:06→20:15)
[2020-02-10] MEDS: PIPERACILLIN/TAZOBACTAM 3,375 MG in SODIUM CHLORIDE 0.9% 100 ML IV SCH ×2 (01:07→15:29)
[2020-02-10] MEDS: HEPARIN 5,000 UNIT/1 ML VIAL SUBCUT SCH ×3 (04:00→22:33)
[2020-02-10] MEDS: DILTIAZEM 30 MG TABLET PO SCH ×5 (04:18→20:54)
[2020-02-10] MEDS ORDERED: HEPARIN DRIP 25,000 UNITS/500 ML PREMIX IV SCH (04:30)
[2020-02-10 04:50] LABS: PT Patient Result 11.2 SECS (9.8-11.9); Partial Thromboplastin Time 28.8 SECS (23.9-33.8)
[2020-02-10] MEDS: BUDESONIDE 0.5 MG/2 ML NEB RESP TX SCH ×2 (07:08→20:15)
[2020-02-10] MEDS: ARFORMOTEROL 15 MCG/2 ML NEB RESP TX SCH ×2 (07:08→20:15)
[2020-02-10 08:45] LABS: Calcium 7.2 MG/DL (8.5-10.1); Osmolality,Calculated 284.8 MOS/KG (273-304)
[2020-02-10] MEDS: SEVELAMER CARBONATE 800 MG TABLET PO SCH ×3 (08:49→18:29)
[2020-02-10] MEDS: ASCORBIC ACID 500 MG TABLET PO SCH ×2 (08:50→20:57)
[2020-02-10] MEDS: guaiFENesin/DM ER 600-30 MG TABLET PO SCH ×2 (08:50→20:56)
[2020-02-10] MEDS: PANTOPRAZOLE 40 MG VIAL IV SCH (08:51)
[2020-02-10] MEDS: MULTIVITAMIN (CENTRUM) TABLET PO SCH (08:51)
[2020-02-10] MEDS: CINACALCET 30 MG TABLET PO SCH (08:51)
[2020-02-10 09:29] LABS: Basophils % 0.1 % (0.0-0.8); Hematocrit 33.9 VOL% (35.7-47.0); Hemoglobin 10.4 GM/DL (12.0-16.0); Immature Granulocytes % 3.6 %; Immature Granulocytes Absolute 0.57 #; Lymphocytes # 0.9 10*3/uL (1.4-4.0); Lymphocytes % 5.7 % (21.3-54.2); Mean Corpuscular HGB Conc 30.7 GM/DL (32-36); Mean Corpuscular Volume 87.8 FL (87-102); Mean Platelet Volume 12.6 FL (9.6-12.0); Monocytes % 5.4 % (1.7-12.7); Neutrophils % 85.2 % (38.7-73.9); Platelet Count 126 T/CUMM (130-400); Red Blood Count 3.86 MC/CUMM (3.8-5.5); Red Cell Distribution Width 14.5 % (9.3-17.3)
[2020-02-10 09:56] LABS: Band Neutrophils 2 % (0-10); Hypochromasia 1+; Lymphocytes 4 % (20-55); Microcytosis Slight; Segmented Neutrophils 91 % (50-85); Target Cells Slight; Total Cells Counted 100
[2020-02-10 09:57] LABS: Platelet Estimate Adequate; Tear Drop Cells Slight
[2020-02-10] MEDS ORDERED: methylPREDNISolone SOD SUC 40 MG/1 ML VIAL IV ONE (17:57)
[2020-02-10 18:30] LABS: ABG Base Excess -2.2 MMOL/L (-2.5-2.5); ABG HCO3 22.5 MMOL/L (20-26); ABG Oxygen Saturation 98.2 % (95-100); ABG PCO2 68.4 MM HG (35-48); ABG TCO2 25.3 MMOL/L (23-27)
[2020-02-10 18:35] LABS: ABG PH 7.208 (7.35-7.45)
[2020-02-11] MEDS: ALBUTEROL/IPRATROPIUM 3 ML NEB RESP TX SCH ×4 (01:07→19:30)
[2020-02-11] MEDS: PIPERACILLIN/TAZOBACTAM 3,375 MG in SODIUM CHLORIDE 0.9% 100 ML IV SCH ×2 (01:40→15:11)
[2020-02-11 03:51] LABS: Basophils % 0.1 % (0.0-0.8); Hematocrit 31.5 VOL% (35.7-47.0); Hemoglobin 9.8 GM/DL (12.0-16.0); Immature Granulocytes % 4.1 %; Immature Granulocytes Absolute 0.44 #; Lymphocytes # 0.6 10*3/uL (1.4-4.0); Lymphocytes % 5.2 % (21.3-54.2); Mean Corpuscular HGB Conc 31.1 GM/DL (32-36); Mean Corpuscular Volume 86.1 FL (87-102); Monocytes % 4.5 % (1.7-12.7); Neutrophils % 86.1 % (38.7-73.9); Platelet Count 99 T/CUMM (130-400); Red Blood Count 3.66 MC/CUMM (3.8-5.5); Red Cell Distribution Width 14.5 % (9.3-17.3); White Blood Count 10.7 T/CUMM (4-12)
[2020-02-11 04:25] LABS: Hypochromasia 1+; Lymphocytes 4 % (20-55); Ovalocytes Slight; Platelet Estimate Decreased; Segmented Neutrophils 92 % (50-85); Total Cells Counted 100
[2020-02-11 04:26] LABS: Microcytosis Slight
[2020-02-11] MEDS: methylPREDNISolone SOD SUC 40 MG/1 ML VIAL IV SCH ×2 (04:26→16:56)
[2020-02-11] MEDS: ARFORMOTEROL 15 MCG/2 ML NEB RESP TX SCH ×2 (07:43→19:30)
[2020-02-11] MEDS: BUDESONIDE 0.5 MG/2 ML NEB RESP TX SCH ×2 (07:44→19:30)
[2020-02-11 08:31] LABS: Osmolality,Calculated 286.8 MOS/KG (273-304)
[2020-02-11] MEDS: SEVELAMER CARBONATE 800 MG TABLET PO SCH ×3 (09:39→16:56)
[2020-02-11] MEDS: DILTIAZEM 30 MG TABLET PO SCH ×2 (09:42→15:02)
[2020-02-11] MEDS: PANTOPRAZOLE 40 MG VIAL IV SCH (10:36)
[2020-02-11] MEDS: ASCORBIC ACID 500 MG TABLET PO SCH ×2 (10:36→21:30)
[2020-02-11] MEDS: CINACALCET 30 MG TABLET PO SCH (10:37)
[2020-02-11] MEDS: HEPARIN 5,000 UNIT/1 ML VIAL SUBCUT SCH (10:37)
[2020-02-11] MEDS: MULTIVITAMIN (CENTRUM) TABLET PO SCH (10:37)
[2020-02-11] MEDS: guaiFENesin/DM ER 600-30 MG TABLET PO SCH ×2 (10:37→21:31)
[2020-02-12] MEDS: HEPARIN 5,000 UNIT/1 ML VIAL SUBCUT SCH ×3 (00:09→21:50)
[2020-02-12] MEDS: HYDROCORTISONE 2.5% RECTAL CREAM 30 GM TUBE TOP SCH ×2 (00:10→22:12)
[2020-02-12] MEDS: ALBUTEROL/IPRATROPIUM 3 ML NEB RESP TX SCH ×4 (01:35→19:01)
[2020-02-12] MEDS: methylPREDNISolone SOD SUC 40 MG/1 ML VIAL IV SCH ×2 (03:40→17:26)
[2020-02-12] MEDS: PIPERACILLIN/TAZOBACTAM 3,375 MG in SODIUM CHLORIDE 0.9% 100 ML IV SCH (03:41)
[2020-02-12 03:54] LABS: Basophils % 0.2 % (0.0-0.8); Eosinophils % 0.1 % (0.00-10.9); Hemoglobin 9.6 GM/DL (12.0-16.0); Immature Granulocytes % 3.7 %; Immature Granulocytes Absolute 0.37 #; Lymphocytes # 0.7 10*3/uL (1.4-4.0); Lymphocytes % 7.2 % (21.3-54.2); Mean Corpuscular Volume 84.3 FL (87-102); Mean Platelet Volume 12.8 FL (9.6-12.0); Monocytes % 5.4 % (1.7-12.7); Neutrophils % 83.4 % (38.7-73.9); Platelet Count 81 T/CUMM (130-400); Red Blood Count 3.56 MC/CUMM (3.8-5.5); Red Cell Distribution Width 14.1 % (9.3-17.3)
[2020-02-12 04:08] LABS: Calcium 6.8 MG/DL (8.5-10.1); Osmolality,Calculated 293.7 MOS/KG (273-304)
[2020-02-12 04:37] LABS: ABG Base Excess -1.8 MMOL/L (-2.5-2.5); ABG HCO3 25.7 MMOL/L (20-26); ABG Oxygen Saturation 93.7 % (95-100); ABG PCO2 58.8 MM HG (35-48); ABG PH 7.259 (7.35-7.45); ABG PO2 81.1 MM HG (80-95); ABG TCO2 27.5 MMOL/L (23-27); Allen Test Positive
[2020-02-12] MEDS: BUDESONIDE 0.5 MG/2 ML NEB RESP TX SCH ×2 (07:10→19:01)
[2020-02-12] MEDS: ARFORMOTEROL 15 MCG/2 ML NEB RESP TX SCH ×2 (07:10→19:01)
[2020-02-12] MEDS: SEVELAMER CARBONATE 800 MG TABLET PO SCH ×3 (10:22→17:24)
[2020-02-12] MEDS: guaiFENesin/DM ER 600-30 MG TABLET PO SCH ×2 (10:22→20:48)
[2020-02-12] MEDS: MULTIVITAMIN (CENTRUM) TABLET PO SCH (10:22)
[2020-02-12] MEDS: ASCORBIC ACID 500 MG TABLET PO SCH ×2 (10:23→20:49)
[2020-02-12] MEDS: CINACALCET 30 MG TABLET PO SCH (10:23)
[2020-02-12] MEDS: PANTOPRAZOLE 40 MG VIAL IV SCH (10:23)
[2020-02-12] MEDS: DORNASE ALFA 2.5 MG/2.5 ML VIAL RESP TX SCH (19:01)
[2020-02-13] MEDS: methylPREDNISolone SOD SUC 40 MG/1 ML VIAL IV SCH (03:19)
[2020-02-13] MEDS: ALBUTEROL/IPRATROPIUM 3 ML NEB RESP TX SCH ×4 (07:05→19:38)
[2020-02-13] MEDS: ARFORMOTEROL 15 MCG/2 ML NEB RESP TX SCH ×2 (07:10→19:38)
[2020-02-13] MEDS: BUDESONIDE 0.5 MG/2 ML NEB RESP TX SCH ×2 (07:20→19:38)
[2020-02-13] MEDS: DORNASE ALFA 2.5 MG/2.5 ML VIAL RESP TX SCH ×2 (07:25→19:51)
[2020-02-13] MEDS: PANTOPRAZOLE 40 MG VIAL IV SCH (10:01)
[2020-02-13] MEDS: guaiFENesin/DM ER 600-30 MG TABLET PO SCH ×2 (10:02→20:45)
[2020-02-13] MEDS: CINACALCET 30 MG TABLET PO SCH (10:02)
[2020-02-13] MEDS: SEVELAMER CARBONATE 800 MG TABLET PO SCH ×3 (10:02→17:18)
[2020-02-13] MEDS: ASCORBIC ACID 500 MG TABLET PO SCH ×2 (10:02→20:46)
[2020-02-13] MEDS: MULTIVITAMIN (CENTRUM) TABLET PO SCH (10:02)
[2020-02-13] MEDS: HEPARIN 5,000 UNIT/1 ML VIAL SUBCUT SCH ×2 (10:09→23:26)
[2020-02-13] MEDS: HYDROCORTISONE 2.5% RECTAL CREAM 30 GM TUBE TOP SCH (23:27)
[2020-02-14] MEDS: ALBUTEROL/IPRATROPIUM 3 ML NEB RESP TX SCH ×4 (00:48→19:30)
[2020-02-14] MEDS: BUDESONIDE 0.5 MG/2 ML NEB RESP TX SCH ×2 (07:13→19:30)
[2020-02-14] MEDS: DORNASE ALFA 2.5 MG/2.5 ML VIAL RESP TX SCH ×2 (07:13→19:50)
[2020-02-14] MEDS: ARFORMOTEROL 15 MCG/2 ML NEB RESP TX SCH ×2 (07:13→19:30)
[2020-02-14 08:54] LABS: ABG HCO3 25.3 MMOL/L (20-26); ABG Oxygen Saturation 95.1 % (95-100); ABG PCO2 51.4 MM HG (35-48); ABG PH 7.336 (7.35-7.45); ABG PO2 77.4 MM HG (80-95); ABG TCO2 25.3 MMOL/L (23-27)
[2020-02-14 09:40] LABS: Basophils % 0.1 % (0.0-0.8); Eosinophils # 0.2 10*3/uL (0.0-0.87); Eosinophils % 2.1 % (0.00-10.9); Hemoglobin 10.3 GM/DL (12.0-16.0); Immature Granulocytes % 1.9 %; Immature Granulocytes Absolute 0.14 #; Lymphocytes # 0.9 10*3/uL (1.4-4.0); Lymphocytes % 12.7 % (21.3-54.2); Mean Corpuscular HGB Conc 31.2 GM/DL (32-36); Mean Corpuscular Volume 86.4 FL (87-102); Mean Platelet Volume 12.8 FL (9.6-12.0); Monocytes % 7.2 % (1.7-12.7); Red Blood Count 3.82 MC/CUMM (3.8-5.5); White Blood Count 7.2 T/CUMM (4-12)
[2020-02-14 09:41] LABS: Platelet Count 79 T/CUMM (130-400)
[2020-02-14 10:01] LABS: Calcium 7.4 MG/DL (8.5-10.1)
[2020-02-14] MEDS: CINACALCET 30 MG TABLET PO SCH (10:16)
[2020-02-14] MEDS: predniSONE 20 MG TABLET PO SCH (10:16)
[2020-02-14] MEDS: MULTIVITAMIN (CENTRUM) TABLET PO SCH (10:17)
[2020-02-14] MEDS: guaiFENesin/DM ER 600-30 MG TABLET PO SCH ×2 (10:17→20:05)
[2020-02-14] MEDS: ASCORBIC ACID 500 MG TABLET PO SCH ×2 (10:17→20:05)
[2020-02-14] MEDS: SEVELAMER CARBONATE 800 MG TABLET PO SCH ×3 (10:17→17:07)
[2020-02-14] MEDS: HEPARIN 5,000 UNIT/1 ML VIAL SUBCUT SCH ×2 (10:18→23:03)
[2020-02-14] MEDS: PANTOPRAZOLE 40 MG VIAL IV SCH (10:18)
[2020-02-14] MEDS: HYDROCORTISONE 2.5% RECTAL CREAM 30 GM TUBE TOP SCH (23:10)
[2020-02-15] MEDS: ALBUTEROL/IPRATROPIUM 3 ML NEB RESP TX SCH ×4 (01:00→19:54)
[2020-02-15] MEDS: DORNASE ALFA 2.5 MG/2.5 ML VIAL RESP TX SCH ×2 (07:28→19:54)
[2020-02-15] MEDS: BUDESONIDE 0.5 MG/2 ML NEB RESP TX SCH ×2 (07:28→19:54)
[2020-02-15] MEDS: ARFORMOTEROL 15 MCG/2 ML NEB RESP TX SCH ×2 (07:28→19:54)
[2020-02-15 09:31] LABS: ABG Base Excess 0.3 MMOL/L (-2.5-2.5); ABG HCO3 23.8 MMOL/L (20-26); ABG Oxygen Saturation 40.1 % (95-100); ABG PCO2 61.1 MM HG (35-48); ABG PH 7.272 (7.35-7.45); ABG TCO2 26.6 MMOL/L (23-27)
[2020-02-15 09:38] LABS: ABG PO2 26.9 MM HG (80-95)
[2020-02-15] MEDS: ASCORBIC ACID 500 MG TABLET PO SCH ×2 (10:14→20:18)
[2020-02-15] MEDS: CINACALCET 30 MG TABLET PO SCH (10:14)
[2020-02-15] MEDS: predniSONE 20 MG TABLET PO SCH (10:14)
[2020-02-15] MEDS: MULTIVITAMIN (CENTRUM) TABLET PO SCH (10:14)
[2020-02-15] MEDS: guaiFENesin/DM ER 600-30 MG TABLET PO SCH ×2 (10:15→20:18)
[2020-02-15] MEDS: PANTOPRAZOLE 40 MG VIAL IV SCH (10:15)
[2020-02-15] MEDS: SEVELAMER CARBONATE 800 MG TABLET PO SCH ×3 (10:15→17:46)
[2020-02-15] MEDS: HEPARIN 5,000 UNIT/1 ML VIAL SUBCUT SCH ×2 (10:19→23:24)
[2020-02-15] MEDS: HYDROCORTISONE 2.5% RECTAL CREAM 30 GM TUBE TOP SCH (23:24)
[2020-02-16] MEDS: ALBUTEROL/IPRATROPIUM 3 ML NEB RESP TX SCH ×3 (01:23→13:47)
[2020-02-16 06:00] LABS: Eosinophils # 0.1 10*3/uL (0.0-0.87); Eosinophils % 1.4 % (0.00-10.9); Hemoglobin 8.6 GM/DL (12.0-16.0); Immature Granulocytes % 1.2 %; Immature Granulocytes Absolute 0.07 #; Lymphocytes # 0.7 10*3/uL (1.4-4.0); Lymphocytes % 11.2 % (21.3-54.2); Mean Corpuscular HGB Conc 31.9 GM/DL (32-36); Mean Corpuscular Volume 84.9 FL (87-102); Mean Platelet Volume 13.1 FL (9.6-12.0); Monocytes % 7.8 % (1.7-12.7); Neutrophils % 78.4 % (38.7-73.9); Red Blood Count 3.18 MC/CUMM (3.8-5.5); Red Cell Distribution Width 13.8 % (9.3-17.3); White Blood Count 5.8 T/CUMM (4-12)
[2020-02-16 06:07] LABS: Platelet Count 75 T/CUMM (130-400)
[2020-02-16 06:17] LABS: Osmolality,Calculated 281.4 MOS/KG (273-304)
[2020-02-16 06:23] LABS: Hypochromasia 1+
[2020-02-16 06:24] LABS: Microcytosis Slight; Ovalocytes Slight; Platelet Estimate Decreased
[2020-02-16] MEDS: BUDESONIDE 0.5 MG/2 ML NEB RESP TX SCH (07:21)
[2020-02-16] MEDS: ARFORMOTEROL 15 MCG/2 ML NEB RESP TX SCH (07:21)
[2020-02-16] MEDS: DORNASE ALFA 2.5 MG/2.5 ML VIAL RESP TX SCH (07:22)
[2020-02-16] MEDS: predniSONE 20 MG TABLET PO SCH (08:15)
[2020-02-16] MEDS: CINACALCET 30 MG TABLET PO SCH (08:15)
[2020-02-16] MEDS: SEVELAMER CARBONATE 800 MG TABLET PO SCH ×2 (08:15→14:49)
[2020-02-16] MEDS: MULTIVITAMIN (CENTRUM) TABLET PO SCH (08:16)
[2020-02-16] MEDS: guaiFENesin/DM ER 600-30 MG TABLET PO SCH (08:16)
[2020-02-16] MEDS: ASCORBIC ACID 500 MG TABLET PO SCH (08:16)
[2020-02-16] MEDS: PANTOPRAZOLE 40 MG VIAL IV SCH (08:17)
[2020-02-16 14:02] VITALS: BP 101/66
[2020-02-16] MEDS: HEPARIN 5,000 UNIT/1 ML VIAL SUBCUT SCH (14:48)
== END 2020-02-16 15:17 | DRG 208 ==
LOC: EDBD → EDUNIT# → N.ED 19:07 → SUATTDRO 22:19 → N.EDINP 22:19 → N.2E 02-05 00:02 → N.ICU 02-05 13:36 → N.4E 02-07 15:18 → N.ICU 02-10 18:23 → N.3E 02-12 13:45 → N.4E 02-16 10:30
PROVIDERS: ADMIT Internal Medicine; ATTEND Internal Medicine

== ENCOUNTER 2020-11-03 22:00 | Inpatient (IN) ==
[2020-11-03] MEDS ORDERED: methylPREDNISolone SOD SUC 125 MG/2 ML VIAL IV STA (22:38)
[2020-11-03] MEDS ORDERED: ALBUTEROL/IPRATROPIUM 3 ML NEB RESP TX STA (22:38)
[2020-11-03 22:49] LABS: Basophils % 0.3 % (0.0-0.8); Eosinophils # 0.2 10*3/uL (0.0-0.87); Eosinophils % 2.3 % (0.00-10.9); Hematocrit 38.6 VOL% (35.7-47.0); Hemoglobin 11.3 GM/DL (12.0-16.0); Immature Granulocytes % 0.5 %; Immature Granulocytes Absolute 0.03 #; Lymphocytes # 1.2 10*3/uL (1.4-4.0); Lymphocytes % 18.6 % (21.3-54.2); Mean Corpuscular HGB Conc 29.3 GM/DL (32-36); Mean Corpuscular Volume 84.8 FL (87-102); Mean Platelet Volume 12.1 FL (9.6-12.0); Monocytes % 9.6 % (1.7-12.7); Neutrophils % 68.7 % (38.7-73.9); Platelet Count 188 T/CUMM (130-400); Red Blood Count 4.55 MC/CUMM (3.8-5.5); Red Cell Distribution Width 16.2 % (9.3-17.3); White Blood Count 6.7 T/CUMM (4-12)
[2020-11-03 23:06] LABS: Alanine Aminotransferase 15 U/L (13-56); Albumin 3.4 G/DL (3.4-5.0); Alkaline Phosphatase 227 U/L (45-117); Aspartate Amino Transferase 14 U/L (0-37); Bilirubin,Total < 0.39 MG/DL (0.2-1.0); Blood Urea Nitrogen 51 MG/DL (7-18); Calcium 7.9 MG/DL (8.5-10.1); Carbon Dioxide 31 MMOL/L (21-32); Estimated Glom Filtration Rate 6 ML/MIN; Glucose 92 MG/DL (74-106); Osmolality,Calculated 281.2 MOS/KG (273-304); Potassium 4.4 MMOL/L (3.5-5.1); Sodium 134 MMOL/L (136-145); Total Protein 7.1 G/DL (6.4-8.2)
[2020-11-04] MEDS ORDERED: ALBUTEROL 2.5 MG/3 ML NEB RESP TX STA (00:27)
[2020-11-04] MEDS ORDERED: cefTRIAXone 1,000 MG in SODIUM CHLORIDE 0.9% 100 ML IV STA (00:32)
[2020-11-04] MEDS ORDERED: DEXTROSE 50% 25 GM/50 ML VIAL IV PRN (01:46)
[2020-11-04] MEDS ORDERED: guaiFENesin/DM ER 600-30 MG TABLET PO PRN (01:46)
[2020-11-04] MEDS ORDERED: MORPHINE 4 MG/1 ML VIAL IV PRN (01:46)
[2020-11-04] MEDS ORDERED: NICOTINE 21 MG/24 HR PATCH TRANSDERM PRN (01:46)
[2020-11-04] MEDS ORDERED: ONDANSETRON 4 MG/2 ML VIAL IV PRN (01:46)
[2020-11-04] MEDS ORDERED: GLUCAGON 1 MG VIAL IM PRN (01:46)
[2020-11-04] MEDS ORDERED: ACETAMINOPHEN 325 MG TABLET PO PRN (01:46)
[2020-11-04] MEDS ORDERED: diphenhydrAMINE CAP 25 MG CAPSULE PO PRN (01:46)
[2020-11-04 02:12] LABS: Allen Test Positive
[2020-11-04 02:13] LABS: ABG Base Excess 1.3 MMOL/L (-2.5-2.5); ABG HCO3 25.4 MMOL/L (20-26); ABG PCO2 68.4 MM HG (35-48); ABG PH 7.256 (7.35-7.45); ABG PO2 75.1 MM HG (80-95); ABG TCO2 27.7 MMOL/L (23-27)
[2020-11-04] MEDS: ALBUTEROL/IPRATROPIUM 3 ML NEB RESP TX SCH ×3 (06:53→20:37)
[2020-11-04] MEDS: BUDESONIDE 0.5 MG/2 ML NEB RESP TX SCH ×2 (06:53→20:37)
[2020-11-04] MEDS: AZITHROMYCIN INJ 500 MG in SODIUM CHLORIDE 0.9% 250 ML IV SCH (09:32)
[2020-11-04] MEDS: methylPREDNISolone SOD SUC 40 MG/1 ML VIAL IV SCH ×2 (09:33→21:26)
[2020-11-04 11:11] LABS: ABG Base Excess -1.3 MMOL/L (-2.5-2.5); ABG HCO3 26.4 MMOL/L (20-26); ABG PCO2 58.3 MM HG (35-48); ABG PH 7.274 (7.35-7.45); ABG PO2 84.3 MM HG (80-95); ABG TCO2 28.2 MMOL/L (23-27); Allen Test Positive
[2020-11-04 15:12] LABS: ABG Base Excess 1.6 MMOL/L (-2.5-2.5); ABG HCO3 25.8 MMOL/L (20-26); ABG Oxygen Saturation 94.1 % (95-100); ABG PCO2 61.9 MM HG (35-48); ABG PH 7.292 (7.35-7.45); ABG PO2 80.8 MM HG (80-95); ABG TCO2 26.9 MMOL/L (23-27); Allen Test Positive
[2020-11-04] MEDS ORDERED: cefTRIAXone 1,000 MG in SODIUM CHLORIDE 0.9% 100 ML IV SCH (21:00)
[2020-11-05] MEDS: ALBUTEROL/IPRATROPIUM 3 ML NEB RESP TX SCH ×3 (01:06→13:47)
[2020-11-05] MEDS: BUDESONIDE 0.5 MG/2 ML NEB RESP TX SCH (07:21)
[2020-11-05] MEDS: methylPREDNISolone SOD SUC 40 MG/1 ML VIAL IV SCH (10:07)
[2020-11-05] MEDS: AZITHROMYCIN INJ 500 MG in SODIUM CHLORIDE 0.9% 250 ML IV SCH (10:08)
[2020-11-05 16:55] VITALS: BP 88/48
== END 2020-11-05 16:51 | disposition home health service (06) | DRG 190 ==
LOC: EDBD → EDUNIT# → N.ED 22:00 → N.EDINP 11-04 01:46 → SUATTDRO 11-04 01:46 → N.EDINP 11-04 02:58 → N.TELEN 11-04 04:26
PROVIDERS: ADMIT Internal Medicine; ATTEND Internal Medicine

== ENCOUNTER 2020-12-12 09:58 | Inpatient (IN) ==
[2020-12-12] MEDS ORDERED: SODIUM CHLORIDE 0.9% 500 ML IV STA ×2 (10:52→12:53)
[2020-12-12 11:28] LABS: Basophils % 0.5 % (0.0-0.8); Eosinophils # 0.1 10*3/uL (0.0-0.87); Eosinophils % 2.1 % (0.00-10.9); Hematocrit 39.3 VOL% (35.7-47.0); Hemoglobin 11.8 GM/DL (12.0-16.0); Immature Granulocytes % 0.5 %; Immature Granulocytes Absolute 0.03 #; Lymphocytes # 0.8 10*3/uL (1.4-4.0); Lymphocytes % 12.4 % (21.3-54.2); Mean Corpuscular Volume 80.7 FL (87-102); Mean Platelet Volume 11.5 FL (9.6-12.0); Monocytes % 9.3 % (1.7-12.7); Neutrophils % 75.2 % (38.7-73.9); Platelet Count 158 T/CUMM (130-400); Red Blood Count 4.87 MC/CUMM (3.8-5.5); Red Cell Distribution Width 15.3 % (9.3-17.3); White Blood Count 6.1 T/CUMM (4-12)
[2020-12-12 11:42] LABS: Calcium 9.6 MG/DL (8.5-10.1); Osmolality,Calculated 266.7 MOS/KG (273-304); Potassium 3.4 MMOL/L (3.5-5.1)
[2020-12-12] MEDS ORDERED: ALBUTEROL/IPRATROPIUM 3 ML NEB RESP TX STA (12:09)
[2020-12-12] MEDS ORDERED: cefTRIAXone 1,000 MG in SODIUM CHLORIDE 0.9% 100 ML IV STA (13:51)
[2020-12-12] MEDS ORDERED: ACETAMINOPHEN 325 MG TABLET PO PRN (14:27)
[2020-12-12] MEDS ORDERED: DEXTROSE 50% 25 GM/50 ML VIAL IV PRN (14:27)
[2020-12-12] MEDS ORDERED: GLUCAGON 1 MG VIAL IM PRN (14:27)
[2020-12-12] MEDS ORDERED: ONDANSETRON 4 MG/2 ML VIAL IV PRN (14:27)
[2020-12-12] MEDS ORDERED: ALBUTEROL 2.5 MG/3 ML NEB RESP TX PRN (14:27)
[2020-12-12] MEDS ORDERED: POTASSIUM CHLORIDE 20 MEQ TABLET PO STA (14:42)
[2020-12-12] MEDS: HEPARIN 5,000 UNIT/1 ML VIAL SUBCUT SCH (16:13)
[2020-12-12] MEDS ORDERED: AZITHROMYCIN INJ 250 MG in SODIUM CHLORIDE 0.9% 250 ML IV SCH (17:00)
[2020-12-12] MEDS: ALBUTEROL/IPRATROPIUM 3 ML NEB RESP TX SCH (19:06)
[2020-12-13] MEDS: ALBUTEROL/IPRATROPIUM 3 ML NEB RESP TX SCH ×4 (00:42→19:04)
[2020-12-13 04:45] LABS: ABG Base Excess 2.9 MMOL/L (-2.5-2.5); ABG HCO3 26.8 MMOL/L (20-26); ABG Oxygen Saturation 90.7 % (95-100); ABG PH 7.257 (7.35-7.45); ABG PO2 69.2 MM HG (80-95); ABG TCO2 29.6 MMOL/L (23-27); Allen Test Positive
[2020-12-13 04:46] LABS: ABG PCO2 72.3 MM HG (35-48)
[2020-12-13] MEDS: HEPARIN 5,000 UNIT/1 ML VIAL SUBCUT SCH ×2 (05:02→18:30)
[2020-12-13 06:22] LABS: Basophils % 0.5 % (0.0-0.8); Eosinophils # 0.2 10*3/uL (0.0-0.87); Hematocrit 36.7 VOL% (35.7-47.0); Hemoglobin 10.9 GM/DL (12.0-16.0); Immature Granulocytes % 0.7 %; Immature Granulocytes Absolute 0.04 #; Lymphocytes # 0.8 10*3/uL (1.4-4.0); Lymphocytes % 13.3 % (21.3-54.2); Mean Corpuscular HGB Conc 29.7 GM/DL (32-36); Mean Corpuscular Volume 81.9 FL (87-102); Mean Platelet Volume 12.2 FL (9.6-12.0); Neutrophils % 71.5 % (38.7-73.9); Platelet Count 154 T/CUMM (130-400); Red Blood Count 4.48 MC/CUMM (3.8-5.5); Red Cell Distribution Width 15.3 % (9.3-17.3); White Blood Count 5.7 T/CUMM (4-12)
[2020-12-13 06:27] LABS: Osmolality,Calculated 277.1 MOS/KG (273-304); Potassium 3.2 MMOL/L (3.5-5.1); Risk Ratio 5.05; VLDL Cholesterol 42.6 MG/DL
[2020-12-13 10:54] LABS: ABG Base Excess 3.8 MMOL/L (-2.5-2.5); ABG HCO3 27.8 MMOL/L (20-26); ABG Oxygen Saturation 99.5 % (95-100); ABG PH 7.276 (7.35-7.45); ABG TCO2 29.9 MMOL/L (23-27)
[2020-12-13 10:56] LABS: ABG PCO2 70.3 MM HG (35-48)
[2020-12-13] MEDS: AZITHROMYCIN INJ 500 MG in SODIUM CHLORIDE 0.9% 250 ML IV SCH (12:48)
[2020-12-13] MEDS ORDERED: PHENOL 1.4% THROAT SPRAY 177 ML BOTTLE PO PRN (13:22)
[2020-12-13] MEDS ORDERED: SODIUM CHLORIDE 0.9% 1,000 ML IV ONE (13:42)
[2020-12-13] MEDS: PANTOPRAZOLE 40 MG TABLET PO SCH (18:30)
[2020-12-13] MEDS: cefTRIAXone 1,000 MG in SODIUM CHLORIDE 0.9% 100 ML IV SCH (18:30)
[2020-12-14] MEDS: ALBUTEROL/IPRATROPIUM 3 ML NEB RESP TX SCH ×4 (00:55→18:01)
[2020-12-14] MEDS: HEPARIN 5,000 UNIT/1 ML VIAL SUBCUT SCH ×2 (03:15→17:02)
[2020-12-14 04:52] LABS: Basophils % 0.4 % (0.0-0.8); Calcium 9.2 MG/DL (8.5-10.1); Eosinophils # 0.2 10*3/uL (0.0-0.87); Eosinophils % 3.3 % (0.00-10.9); Hematocrit 34.7 VOL% (35.7-47.0); Hemoglobin 10.6 GM/DL (12.0-16.0); Immature Granulocytes % 0.6 %; Immature Granulocytes Absolute 0.03 #; Lymphocytes # 0.8 10*3/uL (1.4-4.0); Lymphocytes % 16.9 % (21.3-54.2); Mean Corpuscular HGB Conc 30.5 GM/DL (32-36); Mean Corpuscular Volume 81.3 FL (87-102); Mean Platelet Volume 12.7 FL (9.6-12.0); Neutrophils % 66.8 % (38.7-73.9); Platelet Count 152 T/CUMM (130-400); Potassium 3.5 MMOL/L (3.5-5.1); Red Blood Count 4.27 MC/CUMM (3.8-5.5); Red Cell Distribution Width 15.3 % (9.3-17.3); White Blood Count 4.9 T/CUMM (4-12)
[2020-12-14 09:08] LABS: ABG Base Excess 2.6 MMOL/L (-2.5-2.5); ABG HCO3 26.8 MMOL/L (20-26); ABG Oxygen Saturation 99.8 % (95-100); ABG PCO2 52.8 MM HG (35-48); ABG TCO2 26.5 MMOL/L (23-27); Allen Test Positive; Pt O2 Delivery Device BIPAP
[2020-12-14] MEDS: PANTOPRAZOLE 40 MG TABLET PO SCH (09:21)
[2020-12-14] MEDS: AZITHROMYCIN INJ 500 MG in SODIUM CHLORIDE 0.9% 250 ML IV SCH (09:45)
[2020-12-14] MEDS: VERAPAMIL SR 120 MG TABLET PO SCH ×2 (14:35→21:05)
[2020-12-14] MEDS: ASCORBIC ACID 500 MG TABLET PO SCH ×2 (17:01→21:05)
[2020-12-14] MEDS: ASPIRIN EC 81 MG TABLET PO SCH (17:01)
[2020-12-14] MEDS: cefTRIAXone 1,000 MG in SODIUM CHLORIDE 0.9% 100 ML IV SCH (17:02)
[2020-12-15] MEDS: ALBUTEROL/IPRATROPIUM 3 ML NEB RESP TX SCH ×4 (00:20→19:45)
[2020-12-15 02:59] LABS: ABG HCO3 26.3 MMOL/L (20-26); ABG PCO2 51.6 MM HG (35-48)
[2020-12-15] MEDS: HEPARIN 5,000 UNIT/1 ML VIAL SUBCUT SCH ×2 (03:47→15:45)
[2020-12-15 06:15] LABS: Calcium 9.5 MG/DL (8.5-10.1); Osmolality,Calculated 281.5 MOS/KG (273-304); Potassium 3.3 MMOL/L (3.5-5.1)
[2020-12-15 06:19] LABS: Basophils % 0.7 % (0.0-0.8); Eosinophils # 0.2 10*3/uL (0.0-0.87); Eosinophils % 4.6 % (0.00-10.9); Hematocrit 34.5 VOL% (35.7-47.0); Hemoglobin 10.4 GM/DL (12.0-16.0); Immature Granulocytes % 0.7 %; Immature Granulocytes Absolute 0.03 #; Lymphocytes # 0.7 10*3/uL (1.4-4.0); Lymphocytes % 16.9 % (21.3-54.2); Mean Corpuscular HGB Conc 30.1 GM/DL (32-36); Mean Corpuscular Volume 81.9 FL (87-102); Monocytes % 11.1 % (1.7-12.7); Platelet Count 131 T/CUMM (130-400); Red Blood Count 4.21 MC/CUMM (3.8-5.5); Red Cell Distribution Width 15.3 % (9.3-17.3); White Blood Count 4.3 T/CUMM (4-12)
[2020-12-15 06:21] LABS: Hypochromasia 1+; Microcytosis 1+
[2020-12-15 06:22] LABS: Platelet Estimate Normal
[2020-12-15] MEDS ORDERED: POTASSIUM CHLORIDE 20 MEQ TABLET PO ONE (06:40)
[2020-12-15] MEDS: AZITHROMYCIN 250 MG TABLET PO SCH (09:11)
[2020-12-15] MEDS: ASPIRIN EC 81 MG TABLET PO SCH (09:11)
[2020-12-15] MEDS: VERAPAMIL SR 120 MG TABLET PO SCH ×3 (09:11→15:45)
[2020-12-15] MEDS: PANTOPRAZOLE 40 MG TABLET PO SCH (09:11)
[2020-12-15] MEDS: ASCORBIC ACID 500 MG TABLET PO SCH ×2 (09:11→20:02)
[2020-12-15] MEDS: cefTRIAXone 1,000 MG in SODIUM CHLORIDE 0.9% 100 ML IV SCH (15:46)
[2020-12-16] MEDS: ALBUTEROL/IPRATROPIUM 3 ML NEB RESP TX SCH ×4 (00:40→19:40)
[2020-12-16] MEDS: HEPARIN 5,000 UNIT/1 ML VIAL SUBCUT SCH ×2 (03:05→15:30)
[2020-12-16 06:13] LABS: Calcium 9.8 MG/DL (8.5-10.1); Osmolality,Calculated 282.8 MOS/KG (273-304); Potassium 3.8 MMOL/L (3.5-5.1)
[2020-12-16 06:24] LABS: Basophils % 0.3 % (0.0-0.8); Eosinophils # 0.2 10*3/uL (0.0-0.87); Eosinophils % 3.1 % (0.00-10.9); Hematocrit 34.8 VOL% (35.7-47.0); Hemoglobin 10.6 GM/DL (12.0-16.0); Immature Granulocytes % 0.5 %; Immature Granulocytes Absolute 0.03 #; Lymphocytes # 0.9 10*3/uL (1.4-4.0); Lymphocytes % 15.1 % (21.3-54.2); Mean Corpuscular HGB Conc 30.5 GM/DL (32-36); Mean Corpuscular Volume 80.9 FL (87-102); Monocytes % 14.3 % (1.7-12.7); Neutrophils % 66.7 % (38.7-73.9); Platelet Count 122 T/CUMM (130-400); Red Cell Distribution Width 15.4 % (9.3-17.3); White Blood Count 5.8 T/CUMM (4-12)
[2020-12-16] MEDS: VERAPAMIL SR 120 MG TABLET PO SCH (08:36)
[2020-12-16] MEDS: ASCORBIC ACID 500 MG TABLET PO SCH ×2 (08:36→20:22)
[2020-12-16] MEDS: PANTOPRAZOLE 40 MG TABLET PO SCH (08:36)
[2020-12-16] MEDS: AZITHROMYCIN 250 MG TABLET PO SCH (08:37)
[2020-12-16] MEDS: ASPIRIN EC 81 MG TABLET PO SCH (08:37)
[2020-12-16] MEDS: cefTRIAXone 1,000 MG in SODIUM CHLORIDE 0.9% 100 ML IV SCH (15:30)
[2020-12-17] MEDS: ALBUTEROL/IPRATROPIUM 3 ML NEB RESP TX SCH ×4 (00:20→19:30)
[2020-12-17] MEDS: HEPARIN 5,000 UNIT/1 ML VIAL SUBCUT SCH ×2 (03:06→14:47)
[2020-12-17 05:08] LABS: Calcium 9.6 MG/DL (8.5-10.1); Osmolality,Calculated 280.5 MOS/KG (273-304); Potassium 3.8 MMOL/L (3.5-5.1)
[2020-12-17 05:18] LABS: Basophils % 0.5 % (0.0-0.8); Eosinophils # 0.2 10*3/uL (0.0-0.87); Eosinophils % 3.7 % (0.00-10.9); Hematocrit 34.6 VOL% (35.7-47.0); Hemoglobin 10.2 GM/DL (12.0-16.0); Immature Granulocytes % 0.5 %; Immature Granulocytes Absolute 0.02 #; Lymphocytes # 0.6 10*3/uL (1.4-4.0); Mean Corpuscular HGB Conc 29.5 GM/DL (32-36); Mean Corpuscular Volume 83.4 FL (87-102); Mean Platelet Volume 12.7 FL (9.6-12.0); Monocytes % 10.1 % (1.7-12.7); Neutrophils % 70.2 % (38.7-73.9); Platelet Count 110 T/CUMM (130-400); Red Blood Count 4.15 MC/CUMM (3.8-5.5); Red Cell Distribution Width 15.6 % (9.3-17.3); White Blood Count 4.1 T/CUMM (4-12)
[2020-12-17 05:36] LABS: Hypochromasia 1+; Microcytosis 2+; Platelet Estimate Normal
[2020-12-17] MEDS: VERAPAMIL SR 120 MG TABLET PO SCH (09:36)
[2020-12-17] MEDS: ASPIRIN EC 81 MG TABLET PO SCH (09:36)
[2020-12-17] MEDS: ASCORBIC ACID 500 MG TABLET PO SCH ×2 (09:37→20:37)
[2020-12-17] MEDS: PANTOPRAZOLE 40 MG TABLET PO SCH (09:37)
[2020-12-17] MEDS: AZITHROMYCIN 250 MG TABLET PO SCH (09:37)
[2020-12-17] MEDS ORDERED: cefTRIAXone 1,000 MG in SODIUM CHLORIDE 0.9% 100 ML IV SCH (13:30)
[2020-12-17] MEDS: cefTRIAXone 1,000 MG in SODIUM CHLORIDE 0.9% 100 ML IV SCH (14:47)
[2020-12-18] MEDS: ALBUTEROL/IPRATROPIUM 3 ML NEB RESP TX SCH ×4 (01:45→19:12)
[2020-12-18 06:01] LABS: Basophils % 0.5 % (0.0-0.8); Eosinophils # 0.2 10*3/uL (0.0-0.87); Eosinophils % 3.9 % (0.00-10.9); Hematocrit 34.6 VOL% (35.7-47.0); Hemoglobin 10.2 GM/DL (12.0-16.0); Immature Granulocytes % 0.5 %; Immature Granulocytes Absolute 0.02 #; Lymphocytes # 0.7 10*3/uL (1.4-4.0); Lymphocytes % 15.5 % (21.3-54.2); Mean Corpuscular HGB Conc 29.5 GM/DL (32-36); Mean Corpuscular Volume 83.2 FL (87-102); Mean Platelet Volume 12.5 FL (9.6-12.0); Neutrophils % 70.6 % (38.7-73.9); Platelet Count 145 T/CUMM (130-400); Red Blood Count 4.16 MC/CUMM (3.8-5.5); Red Cell Distribution Width 15.3 % (9.3-17.3); White Blood Count 4.3 T/CUMM (4-12)
[2020-12-18 06:24] LABS: Calcium 9.5 MG/DL (8.5-10.1); Osmolality,Calculated 286.4 MOS/KG (273-304); Potassium 3.8 MMOL/L (3.5-5.1)
[2020-12-18] MEDS: ASCORBIC ACID 500 MG TABLET PO SCH ×2 (12:29→20:39)
[2020-12-18] MEDS: VERAPAMIL SR 120 MG TABLET PO SCH (12:29)
[2020-12-18] MEDS: HEPARIN 5,000 UNIT/1 ML VIAL SUBCUT SCH ×2 (12:29→20:39)
[2020-12-18] MEDS: PANTOPRAZOLE 40 MG TABLET PO SCH (12:29)
[2020-12-18] MEDS: ASPIRIN EC 81 MG TABLET PO SCH (12:29)
[2020-12-18] MEDS: AZITHROMYCIN 250 MG TABLET PO SCH (12:35)
[2020-12-18] MEDS: cefTRIAXone 1,000 MG in SODIUM CHLORIDE 0.9% 100 ML IV SCH (15:11)
[2020-12-19] MEDS: ALBUTEROL/IPRATROPIUM 3 ML NEB RESP TX SCH ×3 (00:35→13:24)
[2020-12-19 04:59] LABS: Basophils % 0.5 % (0.0-0.8); Eosinophils # 0.2 10*3/uL (0.0-0.87); Eosinophils % 4.8 % (0.00-10.9); Hematocrit 35.3 VOL% (35.7-47.0); Hemoglobin 10.3 GM/DL (12.0-16.0); Immature Granulocytes % 0.5 %; Immature Granulocytes Absolute 0.02 #; Lymphocytes # 0.7 10*3/uL (1.4-4.0); Lymphocytes % 17.8 % (21.3-54.2); Mean Corpuscular HGB Conc 29.2 GM/DL (32-36); Mean Corpuscular Volume 83.3 FL (87-102); Mean Platelet Volume 12.1 FL (9.6-12.0); Monocytes % 10.9 % (1.7-12.7); Neutrophils % 65.5 % (38.7-73.9); Platelet Count 137 T/CUMM (130-400); Red Blood Count 4.24 MC/CUMM (3.8-5.5); Red Cell Distribution Width 15.5 % (9.3-17.3); White Blood Count 3.8 T/CUMM (4-12)
[2020-12-19 05:18] LABS: Albumin 2.7 G/DL (3.4-5.0); Bilirubin,Total 0.5 MG/DL (0.2-1.0); Calcium 9.8 MG/DL (8.5-10.1); Osmolality,Calculated 278.7 MOS/KG (273-304); Potassium 4.2 MMOL/L (3.5-5.1); Total Protein 6.4 G/DL (6.4-8.2)
[2020-12-19] MEDS: VERAPAMIL SR 120 MG TABLET PO SCH (08:31)
[2020-12-19] MEDS: ASPIRIN EC 81 MG TABLET PO SCH (08:31)
[2020-12-19] MEDS: ASCORBIC ACID 500 MG TABLET PO SCH (08:31)
[2020-12-19] MEDS: HEPARIN 5,000 UNIT/1 ML VIAL SUBCUT SCH (08:32)
[2020-12-19] MEDS: PANTOPRAZOLE 40 MG TABLET PO SCH (08:32)
[2020-12-19 12:25] VITALS: BP 126/87
== END 2020-12-19 16:05 | disposition home health service (06) | DRG 193 ==
LOC: N.ED 09:58 → N.EDINP 14:25 → SUATTDRO 14:25 → N.EDINP 15:20 → N.3E 15:51
PROVIDERS: ADMIT Internal Medicine; ATTEND Internal Medicine

== ENCOUNTER 2021-03-24 07:39 | Inpatient (IN) ==
[2021-03-24 08:52] LABS: Basophils % 0.2 % (0.0-0.8); Eosinophils % 0.1 % (0.00-10.9); Hematocrit 39.8 VOL% (35.7-47.0); Immature Granulocytes % 0.8 %; Immature Granulocytes Absolute 0.11 #; Lymphocytes # 0.6 10*3/uL (1.4-4.0); Lymphocytes % 4.6 % (21.3-54.2); Mean Corpuscular HGB Conc 30.2 GM/DL (32-36); Mean Corpuscular Volume 79.9 FL (87-102); Mean Platelet Volume 12.7 FL (9.6-12.0); Monocytes % 6.4 % (1.7-12.7); Neutrophils % 87.9 % (38.7-73.9); Platelet Count 155 T/CUMM (130-400); Red Blood Count 4.98 MC/CUMM (3.8-5.5); White Blood Count 13.7 T/CUMM (4-12)
[2021-03-24 08:53] LABS: Albumin 3.3 G/DL (3.4-5.0); Bilirubin,Total 0.9 MG/DL (0.20-1.00); Calcium 9.6 MG/DL (8.5-10.1); Osmolality,Calculated 280.1 MOS/KG (273-304); Potassium 4.6 MMOL/L (3.5-5.1); Total Protein 8.2 G/DL (6.4-8.2)
[2021-03-24 09:31] LABS: Hypochromasia 1+; Lymphocytes 4 % (20-55); Microcytosis 1+; Platelet Estimate Adequate; Segmented Neutrophils 91 % (50-85); Total Cells Counted 100
[2021-03-24] MEDS ORDERED: LEVOFLOXACIN INJ 750 MG in PREMIX 1 EACH IV STA (10:19)
[2021-03-24] MEDS ORDERED: GLUCAGON 1 MG VIAL IM PRN (11:21)
[2021-03-24] MEDS ORDERED: DEXTROSE 50% 25 GM/50 ML VIAL IV PRN (11:21)
[2021-03-24] MEDS ORDERED: SODIUM CHLORIDE 0.9% 500 ML IV STA (11:21)
[2021-03-24] MEDS ORDERED: ALBUTEROL 2.5 MG/3 ML NEB RESP TX PRN (11:21)
[2021-03-24] MEDS ORDERED: ONDANSETRON 4 MG/2 ML VIAL IV PRN (11:21)
[2021-03-24] MEDS ORDERED: DOCUSATE SODIUM 100 MG CAPSULE PO PRN (11:21)
[2021-03-24] MEDS ORDERED: SODIUM CHLORIDE 0.9% 250 ML IV STA (12:36)
[2021-03-24] MEDS: HEPARIN 5,000 UNIT/1 ML VIAL SUBCUT SCH ×2 (17:34→21:04)
[2021-03-24] MEDS: VELPHORO PO SCH (17:34)
[2021-03-24] MEDS: SEVELAMER CARBONATE 800 MG TABLET PO SCH (17:35)
[2021-03-24] MEDS: ACETAMINOPHEN 325 MG TABLET PO PRN (21:05)
[2021-03-25 05:06] LABS: Basophils % 0.3 % (0.0-0.8); Eosinophils # 0.1 10*3/uL (0.0-0.87); Eosinophils % 0.8 % (0.00-10.9); Hematocrit 35.4 VOL% (35.7-47.0); Hemoglobin 10.7 GM/DL (12.0-16.0); Immature Granulocytes % 0.7 %; Immature Granulocytes Absolute 0.05 #; Lymphocytes # 0.7 10*3/uL (1.4-4.0); Lymphocytes % 9.2 % (21.3-54.2); Mean Corpuscular HGB Conc 30.2 GM/DL (32-36); Mean Corpuscular Volume 78.8 FL (87-102); Mean Platelet Volume 12.3 FL (9.6-12.0); Monocytes % 10.4 % (1.7-12.7); Neutrophils % 78.6 % (38.7-73.9); Platelet Count 142 T/CUMM (130-400); Red Blood Count 4.49 MC/CUMM (3.8-5.5); Red Cell Distribution Width 16.4 % (9.3-17.3); White Blood Count 7.6 T/CUMM (4-12)
[2021-03-25] MEDS: HEPARIN 5,000 UNIT/1 ML VIAL SUBCUT SCH ×3 (05:23→21:29)
[2021-03-25 05:46] LABS: Osmolality,Calculated 275.7 MOS/KG (273-304); Potassium 4.8 MMOL/L (3.5-5.1); Risk Ratio 4.74; Thyroid Stimulating Hormone 0.444 uIU/ml (0.358-3.74)
[2021-03-25] MEDS: PANTOPRAZOLE 40 MG TABLET PO SCH (08:07)
[2021-03-25] MEDS: ACETAMINOPHEN 325 MG TABLET PO PRN (08:07)
[2021-03-25] MEDS: MULTIVITAMIN (BEROCCA) TABLET PO SCH (08:07)
[2021-03-25] MEDS: SEVELAMER CARBONATE 800 MG TABLET PO SCH ×3 (08:07→16:57)
[2021-03-25] MEDS: VELPHORO PO SCH ×3 (08:16→16:57)
[2021-03-25] MEDS: oxyCODONE/ACETAMINOPHEN 5-325 MG TABLET PO PRN (16:57)
[2021-03-26] MEDS: HEPARIN 5,000 UNIT/1 ML VIAL SUBCUT SCH ×3 (04:48→20:45)
[2021-03-26] MEDS: ACETAMINOPHEN 325 MG TABLET PO PRN (04:51)
[2021-03-26 04:54] LABS: Basophils % 0.1 % (0.0-0.8); Eosinophils # 0.2 10*3/uL (0.0-0.87); Eosinophils % 2.2 % (0.00-10.9); Hematocrit 36.1 VOL% (35.7-47.0); Hemoglobin 10.8 GM/DL (12.0-16.0); Immature Granulocytes % 0.6 %; Immature Granulocytes Absolute 0.04 #; Lymphocytes % 14.3 % (21.3-54.2); Mean Corpuscular HGB Conc 29.9 GM/DL (32-36); Mean Corpuscular Volume 79.5 FL (87-102); Mean Platelet Volume 11.7 FL (9.6-12.0); Monocytes % 10.6 % (1.7-12.7); Neutrophils % 72.2 % (38.7-73.9); Platelet Count 146 T/CUMM (130-400); Red Blood Count 4.54 MC/CUMM (3.8-5.5); Red Cell Distribution Width 16.3 % (9.3-17.3); White Blood Count 6.8 T/CUMM (4-12)
[2021-03-26 05:14] LABS: Osmolality,Calculated 285.4 MOS/KG (273-304)
[2021-03-26] MEDS: MULTIVITAMIN (BEROCCA) TABLET PO SCH (09:10)
[2021-03-26] MEDS: VELPHORO PO SCH ×3 (09:10→16:34)
[2021-03-26] MEDS: SEVELAMER CARBONATE 800 MG TABLET PO SCH ×3 (09:10→16:34)
[2021-03-26] MEDS: PANTOPRAZOLE 40 MG TABLET PO SCH (09:11)
[2021-03-26] MEDS: LEVOFLOXACIN INJ 500 MG/100 ML PREMIX IV SCH (12:42)
[2021-03-27] MEDS: HEPARIN 5,000 UNIT/1 ML VIAL SUBCUT SCH ×3 (04:49→20:53)
[2021-03-27] MEDS: SEVELAMER CARBONATE 800 MG TABLET PO SCH ×3 (08:28→16:41)
[2021-03-27] MEDS: PANTOPRAZOLE 40 MG TABLET PO SCH (08:29)
[2021-03-27] MEDS: MULTIVITAMIN (BEROCCA) TABLET PO SCH (08:29)
[2021-03-27] MEDS: VELPHORO PO SCH ×3 (08:30→16:29)
[2021-03-27] MEDS: ACETAMINOPHEN 325 MG TABLET PO PRN (11:27)
[2021-03-28] MEDS: oxyCODONE/ACETAMINOPHEN 5-325 MG TABLET PO PRN ×2 (04:08→16:06)
[2021-03-28] MEDS: HEPARIN 5,000 UNIT/1 ML VIAL SUBCUT SCH ×3 (05:09→22:16)
[2021-03-28 06:05] LABS: Basophils % 0.6 % (0.0-0.8); Eosinophils # 0.2 10*3/uL (0.0-0.87); Eosinophils % 3.4 % (0.00-10.9); Hematocrit 34.8 VOL% (35.7-47.0); Hemoglobin 10.5 GM/DL (12.0-16.0); Immature Granulocytes % 0.8 %; Immature Granulocytes Absolute 0.04 #; Lymphocytes # 0.9 10*3/uL (1.4-4.0); Lymphocytes % 16.3 % (21.3-54.2); Mean Corpuscular HGB Conc 30.2 GM/DL (32-36); Mean Platelet Volume 11.7 FL (9.6-12.0); Monocytes % 11.9 % (1.7-12.7); Platelet Count 150 T/CUMM (130-400); Red Blood Count 4.35 MC/CUMM (3.8-5.5); White Blood Count 5.3 T/CUMM (4-12)
[2021-03-28 06:13] LABS: Calcium 9.5 MG/DL (8.5-10.1); Osmolality,Calculated 279.5 MOS/KG (273-304); Potassium 4.8 MMOL/L (3.5-5.1)
[2021-03-28] MEDS: SEVELAMER CARBONATE 800 MG TABLET PO SCH ×3 (09:18→17:30)
[2021-03-28] MEDS: MULTIVITAMIN (BEROCCA) TABLET PO SCH (09:18)
[2021-03-28] MEDS: PANTOPRAZOLE 40 MG TABLET PO SCH (09:18)
[2021-03-28] MEDS: LEVOFLOXACIN INJ 500 MG/100 ML PREMIX IV SCH (09:19)
[2021-03-28] MEDS: VELPHORO PO SCH ×3 (09:24→16:51)
[2021-03-28] MEDS: LEVOFLOXACIN 500 MG TABLET PO SCH (11:40)
[2021-03-29] MEDS: HEPARIN 5,000 UNIT/1 ML VIAL SUBCUT SCH ×3 (06:04→21:39)
[2021-03-29 06:33] LABS: Uric Acid 6.5 MG/DL (2.6-6.0)
[2021-03-29] MEDS: PANTOPRAZOLE 40 MG TABLET PO SCH (08:09)
[2021-03-29] MEDS: MULTIVITAMIN (BEROCCA) TABLET PO SCH (08:09)
[2021-03-29] MEDS: SEVELAMER CARBONATE 800 MG TABLET PO SCH ×3 (08:09→17:08)
[2021-03-29] MEDS: VELPHORO PO SCH ×3 (08:11→17:13)
[2021-03-29] MEDS: oxyCODONE/ACETAMINOPHEN 5-325 MG TABLET PO PRN (17:32)
[2021-03-30] MEDS: HEPARIN 5,000 UNIT/1 ML VIAL SUBCUT SCH ×3 (04:30→20:57)
[2021-03-30 04:31] LABS: Basophils % 0.5 % (0.0-0.8); Eosinophils # 0.2 10*3/uL (0.0-0.87); Eosinophils % 5.1 % (0.00-10.9); Hematocrit 34.9 VOL% (35.7-47.0); Hemoglobin 10.4 GM/DL (12.0-16.0); Immature Granulocytes % 0.8 %; Immature Granulocytes Absolute 0.03 #; Lymphocytes # 0.7 10*3/uL (1.4-4.0); Lymphocytes % 17.9 % (21.3-54.2); Mean Corpuscular HGB Conc 29.8 GM/DL (32-36); Mean Corpuscular Volume 80.6 FL (87-102); Mean Platelet Volume 11.9 FL (9.6-12.0); Monocytes % 13.6 % (1.7-12.7); Neutrophils % 62.1 % (38.7-73.9); Platelet Count 167 T/CUMM (130-400); Red Blood Count 4.33 MC/CUMM (3.8-5.5); Red Cell Distribution Width 15.9 % (9.3-17.3); White Blood Count 3.9 T/CUMM (4-12)
[2021-03-30 04:58] LABS: Calcium 10.2 MG/DL (8.5-10.1); Potassium 4.7 MMOL/L (3.5-5.1)
[2021-03-30] MEDS: MULTIVITAMIN (BEROCCA) TABLET PO SCH (09:40)
[2021-03-30] MEDS: SEVELAMER CARBONATE 800 MG TABLET PO SCH ×3 (09:40→16:41)
[2021-03-30] MEDS: PANTOPRAZOLE 40 MG TABLET PO SCH (09:41)
[2021-03-30] MEDS: VELPHORO PO SCH ×3 (09:41→16:41)
[2021-03-30] MEDS: LEVOFLOXACIN 500 MG TABLET PO SCH (09:41)
[2021-03-30 13:30] LABS: Alanine Aminotransferase 9 U/L (13-56); Aspartate Amino Transferase 10 U/L (0-37)
[2021-03-30] MEDS: methylPREDNISolone SOD SUC 40 MG/1 ML VIAL IV SCH (20:57)
[2021-03-30] MEDS: ACETAMINOPHEN 325 MG TABLET PO PRN (20:57)
[2021-03-31] MEDS: HEPARIN 5,000 UNIT/1 ML VIAL SUBCUT SCH ×3 (04:34→20:51)
[2021-03-31 05:42] LABS: Basophils % 0.5 % (0.0-0.8); Eosinophils % 0.3 % (0.00-10.9); Hematocrit 34.3 VOL% (35.7-47.0); Hemoglobin 10.1 GM/DL (12.0-16.0); Immature Granulocytes % 1.1 %; Immature Granulocytes Absolute 0.04 #; Lymphocytes # 0.4 10*3/uL (1.4-4.0); Lymphocytes % 11.8 % (21.3-54.2); Mean Corpuscular HGB Conc 29.4 GM/DL (32-36); Mean Corpuscular Volume 79.8 FL (87-102); Mean Platelet Volume 11.9 FL (9.6-12.0); Monocytes % 4.1 % (1.7-12.7); Neutrophils % 82.2 % (38.7-73.9); Platelet Count 193 T/CUMM (130-400); Red Cell Distribution Width 16.1 % (9.3-17.3); White Blood Count 3.7 T/CUMM (4-12)
[2021-03-31 05:55] LABS: PT Patient Result 11.3 SECS (10.5-12.0)
[2021-03-31 06:20] LABS: Folate 9.64 NG/ML (5.38-24.0)
[2021-03-31] MEDS: methylPREDNISolone SOD SUC 40 MG/1 ML VIAL IV SCH ×2 (08:26→20:51)
[2021-03-31] MEDS: PANTOPRAZOLE 40 MG TABLET PO SCH (08:27)
[2021-03-31] MEDS: SEVELAMER CARBONATE 800 MG TABLET PO SCH ×3 (08:27→17:12)
[2021-03-31] MEDS: MULTIVITAMIN (BEROCCA) TABLET PO SCH (08:27)
[2021-03-31] MEDS: VELPHORO PO SCH ×3 (09:21→17:12)
[2021-03-31] MEDS: DOXYCYCLINE HYCLATE 100 MG CAPSULE PO SCH ×2 (13:27→20:51)
[2021-03-31 15:56] LABS: Glucose,CSF 78 MG/DL (40-70)
[2021-03-31] MEDS: oxyCODONE/ACETAMINOPHEN 5-325 MG TABLET PO PRN (16:13)
[2021-03-31 17:30] LABS: Appearance,CSF Clear; Red Blood Cell,CSF 594 C/CUMM; White Blood Cell,CSF 2 C/CUMM
[2021-03-31 19:48] LABS: Lymphocytes,CSF 50 %; Neutrophils,CSF 50 %
[2021-03-31] MEDS: ACETAMINOPHEN 325 MG TABLET PO PRN (23:40)
[2021-04-01 05:54] LABS: Basophils % 0.2 % (0.0-0.8); Hematocrit 33.2 VOL% (35.7-47.0); Hemoglobin 9.9 GM/DL (12.0-16.0); Immature Granulocytes % 0.9 %; Immature Granulocytes Absolute 0.04 #; Lymphocytes # 0.5 10*3/uL (1.4-4.0); Mean Corpuscular HGB Conc 29.8 GM/DL (32-36); Mean Corpuscular Volume 80.2 FL (87-102); Mean Platelet Volume 12.1 FL (9.6-12.0); Monocytes % 5.3 % (1.7-12.7); Neutrophils % 81.6 % (38.7-73.9); Platelet Count 198 T/CUMM (130-400); Red Blood Count 4.14 MC/CUMM (3.8-5.5); Red Cell Distribution Width 15.7 % (9.3-17.3); White Blood Count 4.4 T/CUMM (4-12)
[2021-04-01 06:05] LABS: Osmolality,Calculated 281.1 MOS/KG (273-304); Potassium 5.5 MMOL/L (3.5-5.1); Uric Acid 4.2 MG/DL (2.6-6.0)
[2021-04-01] MEDS: HEPARIN 5,000 UNIT/1 ML VIAL SUBCUT SCH ×3 (06:09→22:01)
[2021-04-01] MEDS: MULTIVITAMIN (BEROCCA) TABLET PO SCH (09:26)
[2021-04-01] MEDS: SEVELAMER CARBONATE 800 MG TABLET PO SCH ×3 (09:26→17:32)
[2021-04-01] MEDS: DOXYCYCLINE HYCLATE 100 MG CAPSULE PO SCH ×2 (09:27→22:01)
[2021-04-01] MEDS: PANTOPRAZOLE 40 MG TABLET PO SCH (09:27)
[2021-04-01] MEDS: LEVOFLOXACIN 500 MG TABLET PO SCH (09:27)
[2021-04-01] MEDS: methylPREDNISolone SOD SUC 40 MG/1 ML VIAL IV SCH ×2 (09:27→22:00)
[2021-04-01] MEDS: VELPHORO PO SCH ×3 (09:28→17:32)
[2021-04-02] MEDS: HEPARIN 5,000 UNIT/1 ML VIAL SUBCUT SCH ×3 (04:42→21:40)
[2021-04-02] MEDS: MULTIVITAMIN (BEROCCA) TABLET PO SCH (08:46)
[2021-04-02] MEDS: PANTOPRAZOLE 40 MG TABLET PO SCH (08:46)
[2021-04-02] MEDS: SEVELAMER CARBONATE 800 MG TABLET PO SCH ×3 (08:46→18:44)
[2021-04-02] MEDS: VELPHORO PO SCH ×3 (08:47→18:43)
[2021-04-02] MEDS: DOXYCYCLINE HYCLATE 100 MG CAPSULE PO SCH ×2 (08:47→21:40)
[2021-04-02] MEDS: methylPREDNISolone SOD SUC 40 MG/1 ML VIAL IV SCH ×2 (08:49→21:40)
[2021-04-03] MEDS: HEPARIN 5,000 UNIT/1 ML VIAL SUBCUT SCH ×3 (05:49→20:37)
[2021-04-03] MEDS: SEVELAMER CARBONATE 800 MG TABLET PO SCH ×3 (08:21→17:16)
[2021-04-03] MEDS: methylPREDNISolone SOD SUC 40 MG/1 ML VIAL IV SCH ×2 (08:22→20:37)
[2021-04-03] MEDS: LEVOFLOXACIN 500 MG TABLET PO SCH (08:22)
[2021-04-03] MEDS: PANTOPRAZOLE 40 MG TABLET PO SCH (08:22)
[2021-04-03] MEDS: DOXYCYCLINE HYCLATE 100 MG CAPSULE PO SCH ×2 (08:22→20:37)
[2021-04-03] MEDS: MULTIVITAMIN (BEROCCA) TABLET PO SCH (08:22)
[2021-04-03] MEDS: VELPHORO PO SCH ×3 (08:22→17:16)
[2021-04-04] MEDS: HEPARIN 5,000 UNIT/1 ML VIAL SUBCUT SCH ×2 (04:13→14:30)
[2021-04-04] MEDS: MULTIVITAMIN (BEROCCA) TABLET PO SCH (09:41)
[2021-04-04] MEDS: PANTOPRAZOLE 40 MG TABLET PO SCH (09:41)
[2021-04-04] MEDS: DOXYCYCLINE HYCLATE 100 MG CAPSULE PO SCH (09:41)
[2021-04-04] MEDS: SEVELAMER CARBONATE 800 MG TABLET PO SCH ×2 (09:41→12:02)
[2021-04-04] MEDS: VELPHORO PO SCH ×2 (10:28→11:18)
[2021-04-04] MEDS: methylPREDNISolone SOD SUC 40 MG/1 ML VIAL IV SCH (10:50)
[2021-04-04 12:08] VITALS: BP 95/51
[2021-04-05 22:21] LABS: IgG Index, CSF 0.57 (<=0.85); IgG, CSF 1.1 mg/dL (<=8.1); IgG/Albumin Ratio, CSF 0.16 (<=0.21)
== END 2021-04-04 15:38 | DRG 193 ==
LOC: EDBD → EDUNIT# → N.ED 07:39 → N.EDINP 07:39 → SUATTDRO 11:21 → N.5E 13:56 → SUATTDRO 03-26 12:04
PROVIDERS: ADMIT Internal Medicine; ATTEND Internal Medicine

== ENCOUNTER 2022-03-29 17:52 | Inpatient (IN) ==
[2022-03-29] MEDS ORDERED: ALBUTEROL/IPRATROPIUM 3 ML NEB RESP TX STA (18:30)
[2022-03-29 19:15] LABS: Albumin 3.1 G/DL (3.4-5.0); Bilirubin,Total 0.5 MG/DL (0.20-1.00); Calcium 9.6 MG/DL (8.5-10.1); Osmolality,Calculated 272.1 MOS/KG (273-304); Potassium 3.1 MMOL/L (3.5-5.1); Total Protein 7.2 G/DL (6.4-8.2)
[2022-03-29 19:17] LABS: Basophils % 0.4 % (0.0-0.8); Eosinophils # 0.3 10*3/uL (0.0-0.87); Eosinophils % 6.3 % (0.00-10.9); Hematocrit 38.9 VOL% (35.7-47.0); Hemoglobin 11.5 GM/DL (12.0-16.0); Immature Granulocytes % 0.4 %; Immature Granulocytes Absolute 0.02 #; Lymphocytes # 1.1 10*3/uL (1.4-4.0); Lymphocytes % 22.7 % (21.3-54.2); Mean Corpuscular HGB Conc 29.6 GM/DL (32-36); Mean Platelet Volume 11.5 FL (9.6-12.0); Monocytes # 0.6 10*3/uL (0.11-0.8); Monocytes % 11.7 % (1.7-12.7); Neutrophils % 58.5 % (38.7-73.9); Platelet Count 159 T/CUMM (130-400); Red Blood Count 4.63 MC/CUMM (3.8-5.5); Red Cell Distribution Width 16.2 % (9.3-17.3); White Blood Count 4.9 T/CUMM (4-12)
[2022-03-29] MEDS ORDERED: VANCOMYCIN INJ 1,000 MG in SODIUM CHLORIDE 0.9% 250 ML IV STA (19:33)
[2022-03-29] MEDS ORDERED: PIPERACILLIN/TAZOBACTAM 3,375 MG in SODIUM CHLORIDE 0.9% 100 ML IV STA (19:33)
[2022-03-29] MEDS ORDERED: ONDANSETRON 4 MG/2 ML VIAL IV PRN (20:29)
[2022-03-29] MEDS ORDERED: ACETAMINOPHEN 325 MG TABLET PO PRN (20:29)
[2022-03-29] MEDS: DOCUSATE SODIUM 100 MG CAPSULE PO SCH (21:04)
[2022-03-29] MEDS: HEPARIN 5,000 UNIT/1 ML VIAL SUBCUT SCH (21:05)
[2022-03-29] MEDS: guaiFENesin/DM ER 600-30 MG TABLET PO SCH (21:05)
[2022-03-29] MEDS: CEFEPIME 1,000 MG in SODIUM CHLORIDE 0.9% 100 ML IV SCH (21:05)
[2022-03-30] MEDS: ALBUTEROL/IPRATROPIUM 3 ML NEB RESP TX SCH ×4 (00:37→20:06)
[2022-03-30 06:21] LABS: Basophils % 0.6 % (0.0-0.8); Eosinophils # 0.3 10*3/uL (0.0-0.87); Eosinophils % 6.4 % (0.00-10.9); Hematocrit 38.2 VOL% (35.7-47.0); Hemoglobin 11.4 GM/DL (12.0-16.0); Immature Granulocytes % 0.4 %; Immature Granulocytes Absolute 0.02 #; Lymphocytes # 0.9 10*3/uL (1.4-4.0); Mean Corpuscular HGB Conc 29.8 GM/DL (32-36); Mean Corpuscular Volume 83.4 FL (87-102); Monocytes # 0.5 10*3/uL (0.11-0.8); Monocytes % 9.8 % (1.7-12.7); Neutrophils % 65.8 % (38.7-73.9); Platelet Count 144 T/CUMM (130-400); Red Blood Count 4.58 MC/CUMM (3.8-5.5); Red Cell Distribution Width 16.2 % (9.3-17.3); White Blood Count 5.3 T/CUMM (4-12)
[2022-03-30 06:45] LABS: Calcium 9.2 MG/DL (8.5-10.1); Potassium 3.2 MMOL/L (3.5-5.1); Thyroid Stimulating Hormone 1.09 uIU/ml (0.358-3.74)
[2022-03-30] MEDS: HEPARIN 5,000 UNIT/1 ML VIAL SUBCUT SCH ×2 (08:28→21:50)
[2022-03-30] MEDS: NON-FORMULARY MEDICATION (Sucroferric Oxyhydroxide [Velphoro] 500 mg tablet,chewable) PO SCH ×3 (08:29→18:17)
[2022-03-30] MEDS: SEVELAMER CARBONATE 800 MG TABLET PO SCH ×3 (08:29→18:17)
[2022-03-30] MEDS: PANTOPRAZOLE 40 MG TABLET PO SCH (08:29)
[2022-03-30] MEDS: NON-FORMULARY MEDICATION (Vit B,C-Iron Fum-Fa-D3-Zinc Ox [Prorenal] 8 mg iron-800 mcg-1,00 PO SCH (08:29)
[2022-03-30] MEDS: DOCUSATE SODIUM 100 MG CAPSULE PO SCH ×2 (08:29→21:49)
[2022-03-30] MEDS: guaiFENesin/DM ER 600-30 MG TABLET PO SCH ×2 (08:29→21:49)
[2022-03-30] MEDS: CEFEPIME 1,000 MG in SODIUM CHLORIDE 0.9% 100 ML IV SCH (21:49)
[2022-03-30] MEDS: AZITHROMYCIN INJ 500 MG in SODIUM CHLORIDE 0.9% 250 ML IV SCH (22:46)
[2022-03-31] MEDS: ALBUTEROL/IPRATROPIUM 3 ML NEB RESP TX SCH ×4 (00:30→19:14)
[2022-03-31 06:40] LABS: Calcium 9.9 MG/DL (8.5-10.1); Osmolality,Calculated 277.5 MOS/KG (273-304); Potassium 3.4 MMOL/L (3.5-5.1)
[2022-03-31] MEDS ORDERED: LIDOCAINE 2% VISCOUS 100 ML BOTTLE SWISH/SPIT ONE (07:30)
[2022-03-31] MEDS ORDERED: LIDOCAINE 2% 20 ML VIAL RESP TX ONE (07:30)
[2022-03-31] MEDS ORDERED: MIDAZOLAM 2 MG/2 ML VIAL IV ONE (07:30)
[2022-03-31] MEDS ORDERED: LIDOCAINE 1% 20 ML VIAL MISC INJ ONE (07:30)
[2022-03-31] MEDS: SEVELAMER CARBONATE 800 MG TABLET PO SCH ×3 (11:40→16:43)
[2022-03-31] MEDS: guaiFENesin/DM ER 600-30 MG TABLET PO SCH ×2 (11:40→20:32)
[2022-03-31] MEDS: HEPARIN 5,000 UNIT/1 ML VIAL SUBCUT SCH ×2 (11:40→20:32)
[2022-03-31] MEDS: DOCUSATE SODIUM 100 MG CAPSULE PO SCH ×2 (11:40→20:32)
[2022-03-31] MEDS: PANTOPRAZOLE 40 MG TABLET PO SCH (11:41)
[2022-03-31] MEDS: predniSONE 20 MG TABLET PO SCH (11:41)
[2022-03-31] MEDS: NON-FORMULARY MEDICATION (Sucroferric Oxyhydroxide [Velphoro] 500 mg tablet,chewable) PO SCH ×3 (11:45→16:44)
[2022-03-31] MEDS: NON-FORMULARY MEDICATION (Vit B,C-Iron Fum-Fa-D3-Zinc Ox [Prorenal] 8 mg iron-800 mcg-1,00 PO SCH (11:45)
[2022-03-31] MEDS: AZITHROMYCIN INJ 500 MG in SODIUM CHLORIDE 0.9% 250 ML IV SCH (20:27)
[2022-03-31] MEDS: CEFEPIME 1,000 MG in SODIUM CHLORIDE 0.9% 100 ML IV SCH (21:33)
[2022-04-01] MEDS: ALBUTEROL/IPRATROPIUM 3 ML NEB RESP TX SCH ×4 (00:29→19:00)
[2022-04-01] MEDS: HEPARIN 5,000 UNIT/1 ML VIAL SUBCUT SCH ×2 (08:10→20:52)
[2022-04-01] MEDS: SEVELAMER CARBONATE 800 MG TABLET PO SCH ×3 (08:10→16:34)
[2022-04-01] MEDS: guaiFENesin/DM ER 600-30 MG TABLET PO SCH ×2 (08:10→20:52)
[2022-04-01] MEDS: DOCUSATE SODIUM 100 MG CAPSULE PO SCH ×2 (08:11→20:52)
[2022-04-01] MEDS: PANTOPRAZOLE 40 MG TABLET PO SCH (08:11)
[2022-04-01] MEDS: predniSONE 20 MG TABLET PO SCH (08:11)
[2022-04-01] MEDS: NON-FORMULARY MEDICATION (Vit B,C-Iron Fum-Fa-D3-Zinc Ox [Prorenal] 8 mg iron-800 mcg-1,00 PO SCH (08:14)
[2022-04-01] MEDS: NON-FORMULARY MEDICATION (Sucroferric Oxyhydroxide [Velphoro] 500 mg tablet,chewable) PO SCH ×3 (08:14→16:45)
[2022-04-01] MEDS: CEFEPIME 1,000 MG in SODIUM CHLORIDE 0.9% 100 ML IV SCH (20:52)
[2022-04-01] MEDS: AZITHROMYCIN INJ 500 MG in SODIUM CHLORIDE 0.9% 250 ML IV SCH (20:54)
[2022-04-02] MEDS: ALBUTEROL/IPRATROPIUM 3 ML NEB RESP TX SCH ×3 (00:17→14:00)
[2022-04-02 05:40] LABS: Osmolality,Calculated 284.1 MOS/KG (273-304); Potassium 3.6 MMOL/L (3.5-5.1)
[2022-04-02 07:54] VITALS: BP 122/62
[2022-04-02] MEDS: HEPARIN 5,000 UNIT/1 ML VIAL SUBCUT SCH (08:00)
[2022-04-02] MEDS: SEVELAMER CARBONATE 800 MG TABLET PO SCH ×2 (08:00→11:32)
[2022-04-02] MEDS: guaiFENesin/DM ER 600-30 MG TABLET PO SCH (08:01)
[2022-04-02] MEDS: DOCUSATE SODIUM 100 MG CAPSULE PO SCH (08:01)
[2022-04-02] MEDS: NON-FORMULARY MEDICATION (Sucroferric Oxyhydroxide [Velphoro] 500 mg tablet,chewable) PO SCH ×2 (08:01→11:31)
[2022-04-02] MEDS: predniSONE 20 MG TABLET PO SCH (08:02)
[2022-04-02] MEDS: PANTOPRAZOLE 40 MG TABLET PO SCH (08:02)
[2022-04-02] MEDS: NON-FORMULARY MEDICATION (Vit B,C-Iron Fum-Fa-D3-Zinc Ox [Prorenal] 8 mg iron-800 mcg-1,00 PO SCH (08:02)
== END 2022-04-02 14:50 | disposition home or self-care (01) | DRG 193 ==
LOC: N.EDINP 17:52 → N.ED 17:52 → N.2W 21:15 → SUATTDRO 21:41 → N.2W 22:35 → N.3E 03-30 17:57
PROVIDERS: ADMIT Internal Medicine; ATTEND Family Medicine

== ENCOUNTER 2022-06-24 07:41 | Inpatient (IN) ==
[2022-06-24 08:54] LABS: Arterial Base Excess iSTAT 7 MMOL/L (-2.5-2.5); Arterial Bicarbonate iSTAT 37.6 MMOL/L (20-26); Arterial O2 Saturation iSTAT 94 % (95-100); Arterial PCO2 iSTAT 82 MM HG (35-48); Arterial PO2 iSTAT 85 MM HG (80-95); Arterial Total CO2 iSTAT 40 MMO/L (23-27); Arterial pH iSTAT 7.269 (7.35-7.45)
[2022-06-24 09:37] LABS: Albumin 2.9 G/DL (3.4-5.0); Basophils % 0.5 % (0.0-0.8); Bilirubin,Total 0.6 MG/DL (0.20-1.00); Calcium 9.5 MG/DL (8.5-10.1); Eosinophils # 0.1 10*3/uL (0.0-0.87); Eosinophils % 1.3 % (0.00-10.9); Hematocrit 41.2 VOL% (35.7-47.0); Hemoglobin 11.7 GM/DL (12.0-16.0); Immature Granulocytes % 0.6 %; Immature Granulocytes Absolute 0.04 #; Lymphocytes # 0.8 10*3/uL (1.4-4.0); Lymphocytes % 13.6 % (21.3-54.2); Mean Corpuscular HGB Conc 28.4 GM/DL (32-36); Mean Corpuscular Volume 88.4 FL (87-102); Mean Platelet Volume 12.3 FL (9.6-12.0); Monocytes # 0.5 10*3/uL (0.11-0.8); Monocytes % 8.1 % (1.7-12.7); NRBC # 0.02 10*3/uL; Neutrophils % 75.9 % (38.7-73.9); Osmolality,Calculated 283.1 MOS/KG (273-304); Platelet Count 150 T/CUMM (130-400); Potassium 3.7 MMOL/L (3.5-5.1); Red Blood Count 4.66 MC/CUMM (3.8-5.5); Red Cell Distribution Width 15.8 % (9.3-17.3); Total Protein 6.7 G/DL (6.4-8.2); White Blood Count 6.2 T/CUMM (4-12)
[2022-06-24] MEDS ORDERED: SODIUM CHLORIDE 0.9% 250 ML IV STA ×2 (10:43→13:54)
[2022-06-24] MEDS ORDERED: ALBUTEROL 2.5 MG/3 ML NEB RESP TX STA (13:15)
[2022-06-24] MEDS ORDERED: MORPHINE 2 MG/1 ML SYRINGE IV PRN (13:56)
[2022-06-24] MEDS ORDERED: ONDANSETRON 4 MG/2 ML VIAL IV PRN (13:56)
[2022-06-24] MEDS ORDERED: hydrALAZINE 20 MG/1 ML VIAL IV PRN (13:56)
[2022-06-24] MEDS: ALBUTEROL/IPRATROPIUM 3 ML NEB RESP TX SCH ×3 (14:22→22:59)
[2022-06-24 14:27] LABS: Arterial Base Excess iSTAT 4 MMOL/L (-2.5-2.5); Arterial O2 Saturation iSTAT 82 % (95-100); Arterial PCO2 iSTAT 78 MM HG (35-48); Arterial PO2 iSTAT 57 MM HG (80-95); Arterial Total CO2 iSTAT 36 MMO/L (23-27); Arterial pH iSTAT 7.245 (7.35-7.45)
[2022-06-24] MEDS: cefTRIAXone 1,000 MG in SODIUM CHLORIDE 0.9% 100 ML IV SCH (15:01)
[2022-06-24] MEDS: methylPREDNISolone SOD SUC 125 MG/2 ML VIAL IV SCH ×2 (15:07→21:06)
[2022-06-24] MEDS: MIDODRINE 5 MG TABLET PO SCH ×2 (16:44→21:06)
[2022-06-24] MEDS: AZITHROMYCIN INJ 500 MG in SODIUM CHLORIDE 0.9% 250 ML IV SCH (16:46)
[2022-06-24 17:40] LABS: Arterial Base Excess iSTAT 5 MMOL/L (-2.5-2.5); Arterial Bicarbonate iSTAT 35.8 MMOL/L (20-26); Arterial O2 Saturation iSTAT 89 % (95-100); Arterial PCO2 iSTAT 84 MM HG (35-48); Arterial PO2 iSTAT 71 MM HG (80-95); Arterial Total CO2 iSTAT 38 MMO/L (23-27); Arterial pH iSTAT 7.238 (7.35-7.45)
[2022-06-24] MEDS ORDERED: NOREPINEPHRINE DRIP 8 MG/250 ML PREMIX IV PRN (19:06)
[2022-06-24] MEDS: SODIUM CHLORIDE 0.9% 500 ML IV ONE ×2 (19:34→19:35)
[2022-06-24 20:16] LABS: Arterial Base Excess iSTAT 5 MMOL/L (-2.5-2.5); Arterial Bicarbonate iSTAT 33.5 MMOL/L (20-26); Arterial O2 Saturation iSTAT 97 % (95-100); Arterial PCO2 iSTAT 70 MM HG (35-48); Arterial PO2 iSTAT 100 MM HG (80-95); Arterial Total CO2 iSTAT 36 MMO/L (23-27); Arterial pH iSTAT 7.285 (7.35-7.45)
[2022-06-25] MEDS: ALBUTEROL/IPRATROPIUM 3 ML NEB RESP TX SCH ×6 (02:36→22:30)
[2022-06-25 03:26] LABS: Arterial Base Excess iSTAT 8 MMOL/L (-2.5-2.5); Arterial Bicarbonate iSTAT 31.4 MMOL/L (20-26); Arterial O2 Saturation iSTAT 95 % (95-100); Arterial PCO2 iSTAT 41 MM HG (35-48); Arterial PO2 iSTAT 68 MM HG (80-95); Arterial Total CO2 iSTAT 33 MMO/L (23-27); Arterial pH iSTAT 7.498 (7.35-7.45)
[2022-06-25] MEDS: methylPREDNISolone SOD SUC 125 MG/2 ML VIAL IV SCH ×2 (04:00→08:20)
[2022-06-25 05:55] LABS: Basophils % 0.3 % (0.0-0.8); Hematocrit 35.2 VOL% (35.7-47.0); Hemoglobin 10.3 GM/DL (12.0-16.0); Immature Granulocytes % 0.7 %; Immature Granulocytes Absolute 0.02 #; Lymphocytes # 0.3 10*3/uL (1.4-4.0); Lymphocytes % 10.6 % (21.3-54.2); Mean Corpuscular HGB Conc 29.3 GM/DL (32-36); Mean Corpuscular Volume 85.6 FL (87-102); Mean Platelet Volume 12.8 FL (9.6-12.0); Monocytes # 0.1 10*3/uL (0.11-0.8); Monocytes % 1.7 % (1.7-12.7); Neutrophils % 86.7 % (38.7-73.9); Platelet Count 119 T/CUMM (130-400); Red Blood Count 4.11 MC/CUMM (3.8-5.5); Red Cell Distribution Width 15.4 % (9.3-17.3); White Blood Count 2.9 T/CUMM (4-12)
[2022-06-25 06:11] LABS: Calcium 9.3 MG/DL (8.5-10.1); Osmolality,Calculated 283.5 MOS/KG (273-304); Potassium 3.3 MMOL/L (3.5-5.1)
[2022-06-25] MEDS: MIDODRINE 5 MG TABLET PO SCH ×3 (09:41→20:13)
[2022-06-25] MEDS ORDERED: POTASSIUM CHLORIDE 20 MEQ TABLET PO ONE (10:33)
[2022-06-25] MEDS ORDERED: ENOXAPARIN 30 MG/0.3 ML SYRINGE SUBCUT SCH ×2 (11:00)
[2022-06-25 11:09] LABS: Arterial Base Excess iSTAT 4 MMOL/L (-2.5-2.5); Arterial Bicarbonate iSTAT 31.4 MMOL/L (20-26); Arterial O2 Saturation iSTAT 97 % (95-100); Arterial PCO2 iSTAT 57 MM HG (35-48); Arterial PO2 iSTAT 95 MM HG (80-95); Arterial Total CO2 iSTAT 33 MMO/L (23-27); Arterial pH iSTAT 7.346 (7.35-7.45)
[2022-06-25] MEDS: ENOXAPARIN 40 MG/0.4 ML SYRINGE SUBCUT SCH (11:13)
[2022-06-25] MEDS: SEVELAMER CARBONATE 800 MG TABLET PO SCH ×2 (12:20→16:54)
[2022-06-25] MEDS: cefTRIAXone 1,000 MG in SODIUM CHLORIDE 0.9% 100 ML IV SCH (14:20)
[2022-06-25] MEDS: AZITHROMYCIN INJ 500 MG in SODIUM CHLORIDE 0.9% 250 ML IV SCH (14:57)
[2022-06-25] MEDS: methylPREDNISolone SOD SUC 40 MG/1 ML VIAL IV SCH ×2 (15:49→23:34)
[2022-06-25] MEDS: ASCORBIC ACID 500 MG TABLET PO SCH (20:13)
[2022-06-26] MEDS: ALBUTEROL/IPRATROPIUM 3 ML NEB RESP TX SCH ×6 (02:28→22:55)
[2022-06-26 04:44] LABS: Arterial Base Excess iSTAT 5 MMOL/L (-2.5-2.5); Arterial Bicarbonate iSTAT 34.7 MMOL/L (20-26); Arterial O2 Saturation iSTAT 90 % (95-100); Arterial PCO2 iSTAT 77 MM HG (35-48); Arterial PO2 iSTAT 70 MM HG (80-95); Arterial Total CO2 iSTAT 37 MMO/L (23-27); Arterial pH iSTAT 7.264 (7.35-7.45)
[2022-06-26 06:43] LABS: Hematocrit 36.8 VOL% (35.7-47.0); Hemoglobin 10.7 GM/DL (12.0-16.0); Immature Granulocytes % 1.2 %; Immature Granulocytes Absolute 0.08 #; Lymphocytes # 0.4 10*3/uL (1.4-4.0); Lymphocytes % 5.5 % (21.3-54.2); Mean Corpuscular HGB Conc 29.1 GM/DL (32-36); Mean Corpuscular Volume 86.4 FL (87-102); Monocytes # 0.2 10*3/uL (0.11-0.8); Monocytes % 2.9 % (1.7-12.7); NRBC # 0.06 10*3/uL; Neutrophils % 90.4 % (38.7-73.9); Platelet Count 141 T/CUMM (130-400); Red Blood Count 4.26 MC/CUMM (3.8-5.5); Red Cell Distribution Width 15.9 % (9.3-17.3); White Blood Count 6.9 T/CUMM (4-12)
[2022-06-26 06:45] LABS: % Iron Saturation 47.1 % (18-50); Albumin 2.6 G/DL (3.4-5.0); Bilirubin,Total 0.4 MG/DL (0.20-1.00); Ferritin 1150.6 ng/mL (8-252); Osmolality,Calculated 279.1 MOS/KG (273-304); Potassium 4.5 MMOL/L (3.5-5.1); Total Protein 6.2 G/DL (6.4-8.2)
[2022-06-26] MEDS: MIDODRINE 5 MG TABLET PO SCH ×3 (08:20→20:08)
[2022-06-26] MEDS: ASCORBIC ACID 500 MG TABLET PO SCH ×2 (08:20→20:08)
[2022-06-26] MEDS: methylPREDNISolone SOD SUC 40 MG/1 ML VIAL IV SCH ×2 (08:20→16:00)
[2022-06-26] MEDS: SEVELAMER CARBONATE 800 MG TABLET PO SCH ×3 (08:20→17:10)
[2022-06-26] MEDS: ENOXAPARIN 40 MG/0.4 ML SYRINGE SUBCUT SCH (11:05)
[2022-06-26] MEDS: cefTRIAXone 1,000 MG in SODIUM CHLORIDE 0.9% 100 ML IV SCH (13:50)
[2022-06-26] MEDS: AZITHROMYCIN INJ 500 MG in SODIUM CHLORIDE 0.9% 250 ML IV SCH (14:50)
[2022-06-27] MEDS: methylPREDNISolone SOD SUC 40 MG/1 ML VIAL IV SCH ×2 (00:05→08:34)
[2022-06-27] MEDS: ALBUTEROL/IPRATROPIUM 3 ML NEB RESP TX SCH ×4 (03:10→15:50)
[2022-06-27 04:24] LABS: Arterial Base Excess iSTAT 6 MMOL/L (-2.5-2.5); Arterial Bicarbonate iSTAT 34.6 MMOL/L (20-26); Arterial O2 Saturation iSTAT 85 % (95-100); Arterial PCO2 iSTAT 71 MM HG (35-48); Arterial PO2 iSTAT 57 MM HG (80-95); Arterial Total CO2 iSTAT 37 MMO/L (23-27); Arterial pH iSTAT 7.297 (7.35-7.45)
[2022-06-27 05:06] LABS: Calcium 8.7 MG/DL (8.5-10.1); Osmolality,Calculated 284.1 MOS/KG (273-304); Potassium 4.3 MMOL/L (3.5-5.1)
[2022-06-27 05:34] LABS: Hemoglobin 10.8 GM/DL (12.0-16.0); Immature Granulocytes % 1.9 %; Immature Granulocytes Absolute 0.13 #; Lymphocytes # 0.4 10*3/uL (1.4-4.0); Lymphocytes % 5.6 % (21.3-54.2); Mean Corpuscular HGB Conc 29.1 GM/DL (32-36); Mean Corpuscular Volume 85.5 FL (87-102); Mean Platelet Volume 12.5 FL (9.6-12.0); Monocytes # 0.1 10*3/uL (0.11-0.8); NRBC # 0.04 10*3/uL; Neutrophils % 90.5 % (38.7-73.9); Platelet Count 136 T/CUMM (130-400); Red Blood Count 4.34 MC/CUMM (3.8-5.5); Red Cell Distribution Width 15.5 % (9.3-17.3); White Blood Count 6.9 T/CUMM (4-12)
[2022-06-27 05:38] LABS: Hematocrit 37.1 VOL% (35.7-47.0)
[2022-06-27] MEDS ORDERED: SEVELAMER CARBONATE 800 MG TABLET PO SCH ×2 (08:30→12:00)
[2022-06-27] MEDS: ASCORBIC ACID 500 MG TABLET PO SCH (08:32)
[2022-06-27] MEDS: MIDODRINE 5 MG TABLET PO SCH ×2 (08:32→16:06)
[2022-06-27] MEDS: SEVELAMER CARBONATE 800 MG TABLET PO SCH ×2 (08:32→13:21)
[2022-06-27] MEDS ORDERED: CINACALCET 30 MG TABLET PO SCH (09:00)
[2022-06-27] MEDS ORDERED: MULTIVITAMIN (BEROCCA) TABLET PO SCH (09:00)
[2022-06-27] MEDS ORDERED: PANTOPRAZOLE 40 MG VIAL IV SCH (09:00)
[2022-06-27] MEDS: ENOXAPARIN 40 MG/0.4 ML SYRINGE SUBCUT SCH ×2 (09:24→11:58)
[2022-06-27 09:51] VITALS: BP 98/69
[2022-06-27] MEDS: cefTRIAXone 1,000 MG in SODIUM CHLORIDE 0.9% 100 ML IV SCH (16:06)
[2022-06-27] MEDS: AZITHROMYCIN INJ 500 MG in SODIUM CHLORIDE 0.9% 250 ML IV SCH (16:06)
== END 2022-06-27 15:50 | disposition home or self-care (01) | DRG 208 ==
LOC: EDUNIT# → EDBD → N.ED 07:41 → SUATTDRO 13:56 → N.EDINP 13:56 → N.CC 15:10
PROVIDERS: ADMIT Internal Medicine; ATTEND Internal Medicine